=== PATIENT | male | born 1950 | race Caucasian/White ===

== ENCOUNTER 2023-12-20 11:37 | Emergency (ER) | payer MEDICARE, OTHER, SELFPAY ==
[2023-12-20 11:38] VITALS: BMI 25.9
[2023-12-20 11:43] VITALS: BP 105/70
--- NOTE | 2023-12-20 12:08 | ED.GENMED ---
History of Present Illness
General
Chief Complaint: Abdominal Symptoms
Time Seen by Provider: 12/20/23 12:00
Travel History
Have you had any contact with someone who has COVID-19?: No
Do you have any symptoms of coronavirus? Fever > 100 degrees, chills, cough, shortness of breath, sore throat, loss of taste or smell, muscle aches, or headache?: Yes
Symptoms:: see triage note
History of Present Illness
History of Present Illness:
HPI: 2 days ago the patient started having diarrhea. Currently the diarrhea has segmentally improved. He never had any vomiting. He had diffuse abdominal pain. He took tramadol earlier and now the symptoms have improved he has a history of
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 He also has history of diverticulitis with history of partial colectomy.
EXAM:
GENERAL: Well appearing in no distress
HEENT: Moist oral mucosa
CARDIOVASCULAR: No murmurs, normal heart rate and rhythm, No chest wall tenderness
PULMONARY: No respiratory distress, breath sounds are clear and equal
ABDOMEN: Soft with no peritoneal signs, mild diffuse abdominal tenderness, surgical scar noted to the left lower quadrant
NEUROLOGIC: Excellent strength all extremities, no coordination deficits, essential tremor noted
PSYCHIATRIC: Appropriate mental status, normal insight and judgement
EXTREMITIES: Nontender, no edema, moves all extremities equally
SKIN: No rash, no lesions
ED COURSE:
12:15 PM: I initially evaluated patient
NUMBER AND COMPLEXITY OF PROBLEMS ADDRESSED AT THE ENCOUNTER
� Chronic conditions affecting care: Neuroendocrine tumor, with mets to the liver and spine, essential tremor, A-fib on Xarelto, high blood pressure, history of diverticulitis
� Acute Exacerbation and/or Progression of Chronic Illness: This is an acute problem
� Differential Diagnosis includes: Progression of metastatic disease, diverticulitis, bowel obstruction, viral syndrome, gastroenteritis
AMOUNT AND/OR COMPLEXITY OF DATA TO BE REVIEWED AND ANALYZED
� I performed an independent evaluation of and my interpretation is:
EKG:
CT: CT imaging suggest enteritis but no sign of infection
X-rays:
Laboratory Studies: Mild pancytopenia noted, anemia is chronic and he has been thrombocytopenic in the past, renal function is normal
Other:
� Review of other/old records: The patient was seen here in the summer 2021 with hypovolemic shock associated with partial small bowel obstruction
� Clinical information was obtained by an independent historian: I spoke to the at bedside
� Prescriptions/Medications Considered but not given:
� Further testing considered but not performed:
RISK OF COMPLICATIONS AND/OR MORBIDITY OR MORTALITY OF PATIENT MANAGEMENT
� Social determinants of health affecting care: Lives at home
� Discussion with other providers:
� Escalation of care including admission/observation vs risk of discharge considered: Patient had diarrhea that started 2 days ago but resolved and now has some abdominal pain that is diffuse. Given history of diverticulitis
will obtain CT imaging. He appears fairly comfortable but did take tramadol earlier. On reassessment at around 2 PM, the symptoms somewhat worsened and was given a one-time dose of Toradol (patient is on anticoagulant). The pain persists however
he appears fairly comfortable on reassessment. I offered and considered keeping the patient for further observation however the patient does feel reasonly well to go home. CT suggest enteritis and he did have diarrhea.
Past History
Past History
ED Past Medical History: Arrthythmia, Cancer (Lung), GERD and HTN
ED Past Surgical History: Bowel resection and Orthopedic
Patient has exhibited threatening behavior?: No
Social History
Tobacco: Non-smoker
Alcohol: Daily
Drug: None
Personal:
Living: with family
Family History
Family History: Negative Early CAD
Phy Exam
Physical Exam
Physical Exam:
See HPI
Course
Orders/Labs/Results
Orders:
Orders
12/20/23 12:03
IV Insert/Care/Rem.- Treatment PRN
12/20/23 12:10
Complete Blood Count/With Diff Urgent
Comprehensive Metabolic Panel Urgent
Lipase Urgent
12/20/23 12:16
CT Abd/pelvis W Iv Cont Urgent
Comment:
Reason For Exam: abd pain, diarrhea, h/o NEC met to liver spine
0.9% Sodium Chloride 1000 ml [Nss] 1,000 ml IV BOLUS
12/20/23 13:47
Urinalysis Reflex To Culture Urgent
Date Specimen was Collected: 12/20/23
Time Specimen was Collected: 12:03
Urine Microscopic Reflex Cult Urgent
12/20/23 14:04
Ketorolac [Toradol] 15 mg IV NOW STA
Abnormal Lab Results
12/20/23 12/20/23
12:10 13:47
WBC 3.7 L 10^3/uL
(4.8-10.8)
RBC 3.67 L 10^6/uL
(4.70-6.10)
Hgb 10.6 L g/dL
(13.0-18.0)
Hct 32.5 L %
(39.0-52.0)
MCHC 32.6 L g/dL
(33.0-37.0)
Plt Count 114 L 10^3/uL
(130-400)
MPV 11.4 H fL
(7.4-10.4)
Absolute Lymphs (auto) 0.4 L 10^3/uL
(1.2-3.4)
Lymphocytes % 10.5 L %
(20.5-51.1)
Monocytes % 12.1 H %
(1.7-9.3)
Sodium 134 L mmol/L
(135-145)
Leukocyte Esterase Rfl Trace A
(Negative)
Urine Bacteria (Reflex) Few A
(Negative)
12/20/23 12:10
12/20/23 12:10
Vital Signs
Initial and Last Documented VS:
Initial Vital Signs
Temp Pulse Resp BP Pulse Ox
97.5 F 83 18 105/70 97
12/20/23 11:43 12/20/23 11:43 12/20/23 11:43 12/20/23 11:43 12/20/23 11:43
Last Documented Vital Signs
Temp Pulse Resp BP Pulse Ox
97.5 F 83 18 112/93 100
12/20/23 11:43 12/20/23 11:43 12/20/23 11:43 12/20/23 12:12 12/20/23 12:45
*Critical Care Note
Total Time (30-74mins, 75-104mins- exclusive of procedures): Not Applicable
ED Attending Note
-
Portions of this chart may have been created with voice recognition software.� Occasional wrong word or��sound alike� substitutions may have occurred due to the inherent limitations of voice recognition software.
Discharge Plan
Departure
Patient Disposition: Home (Routine Discharge)
Date of Disposition: 12/20/23
Time of Disposition: 15:10
Patient with high blood pressure during this ER visit?: Yes
Discharge Problem:
Enteritis
Prescriptions:
No Action
finasteride 5 MG tablet
5 mg PO DAILY
diphenoxylate-atropine [Lomotil] 2.5-0.025 mg Tablet
2 tab PO BID
Patient Comments:
05/15/2022: last filled 05/08/22, 240 tabs for 30 days from [facility]
cyanocobalamin (vitamin B-12) 1,000 mcg Tablet
1,000 mcg PO DAILY
tadalafil 20 mg Tablet
20 mg PO DAILY PRN (Reason: ED)
Creon 24,000-76,000 -120,000 unit Capsule,Delayed Release(Dr/Ec)
4 cap PO AC
Patient Comments:
4 capsules with meals TID
docusate sodium 100 mg Capsule
100 mg PO BID Qty: 0 0RF
lorazepam 1 mg Tablet
0.5 mg PO TID Qty: 9 0RF
venlafaxine 75 mg Capsule,Extended Release 24hr
75 mg PO DAILY Qty: 0 0RF
polyethylene glycol 3350 17 gram Powder In Packet
17 g PO DAILY Qty: 0 0RF
tamsulosin 0.4 mg Capsule
0.8 mg PO DAILY Qty: 0 0RF
folic acid 1 mg Tablet
1 mg PO DAILY Qty: 0 0RF
metoprolol tartrate 25 mg Tablet
12.5 mg PO BID Qty: 0 0RF
primidone 50 mg Tablet
50 mg PO DAILY Qty: 0 0RF
gabapentin 400 mg Capsule
400 mg PO BID Qty: 0 0RF
thiamine HCl (vitamin B1) 100 mg Tablet
200 mg PO DAILY Qty: 0 0RF
topiramate 25 mg Tablet
25 mg PO HS Qty: 0 0RF
pantoprazole 40 mg Tablet,Delayed Release (Dr/Ec)
40 mg PO DAILY Qty: 0 0RF
cefdinir 300 mg Capsule
300 mg PO Q12 Qty: 0 0RF
finasteride 5 mg Tablet
5 mg PO DAILY Qty: 0 0RF
Xarelto 20 mg Tablet
20 mg PO QPM Qty: 0 0RF
olanzapine 5 mg Tablet,Disintegrating
2.5 mg PO HS Qty: 1 0RF
Referrals:
Lele Farnsworth MD [Family Provider] -
Activity Restrictions/Additional Instructions:
The CAT scan of the abdomen and pelvis suggests enteritis there is no sign of bowel obstruction. Metastatic lesions again are seen. There was no sign of infection. Kidney function is normal. Pancreas test is normal. Return here if worse.
Continue tramadol as needed
Interventions
Interventions:
*General Assessment Last Done: 12/20/23 11:43
ED- Fall Risk Assessment Last Done: 12/20/23 12:31
*ED COVID-19 Vaccine History Last Done: 12/20/23 11:43
KN-Agymxv-Gukzdqfwie Assessment Last Done: 12/20/23 12:31
[2023-12-20 12:12] VITALS: BP 112/93
[2023-12-20 12:17] LABS: % Basophils 0.5 % (0-2); % Eosinophils 4.6 % (0-6); % Immature Granulocytes 0.5 % (0-0.5); % Lymphocytes 10.5 % (20.5-51.1); % Monocytes 12.1 % (1.7-9.3); % Neutrophils 71.8 % (42.2-75.2); Absolute Eosinophils 0.2 10^3/uL (0-0.7); Absolute Lymphocytes 0.4 10^3/uL (1.2-3.4); Absolute Monocytes 0.5 10^3/uL (0.1-0.6); Absolute Neutrophils 2.7 10^3/uL (1.4-6.5); Hematocrit 32.5 % (39.0-52.0); Hemoglobin 10.6 g/dL (13.0-18.0); Mean Corp Hgb Conc. 32.6 g/dL (33.0-37.0); Mean Corpuscular Hgb 28.9 pg (27.0-31.0); Mean Corpuscular Volume 88.6 fL (80.0-94.0); Mean Platelet Volume 11.4 fL (7.4-10.4); Nucleated Red Blood Cells % 0 % (-); Platelet Count 114 10^3/uL (130-400); Red Blood Cell Count 3.67 10^6/uL (4.70-6.10); Red Cell Dist. Width 14.3 % (11.5-14.5); White Blood Cell Count 3.7 10^3/uL (4.8-10.8)
[2023-12-20] MEDS: NSS 1000 IV (12:30)
[2023-12-20 12:32] LABS: ALT (SGPT) 12 U/L (0-50); AST (SGOT) 19 U/L (17-59); Albumin 3.8 g/dl (3.5-5.0); Alkaline Phosphatase 66 U/L (38-126); Blood Urea Nitrogen 17 mg/dl (9-20); Carbon Dioxide 26 mmol/L (22-30); Chloride 104 mmol/L (98-107); Estimated Creatinine Clearance 69 ml/min; Glucose 96 mg/dl (70-99); Lipase 57 U/L (23-300); Potassium 3.6 mmol/L (3.5-5.1); Sodium 134 mmol/L (135-145); Total Bilirubin 0.7 mg/dl (0.2-1.3); Total Protein 6.4 g/dl (6.3-8.2); eGFR > 60.00
[2023-12-20] MEDS: TORADOL 15 MG IV (14:08)
[2023-12-20 14:22] LABS: Urine Albumin Negative (Neg - Trace); Urine Bilirubin Negative (Negative); Urine Character Clear (Clear); Urine Color Yellow; Urine Glucose Negative (Negative); Urine Ketone Negative (Negative); Urine Leukocyte Trace (Negative); Urine Nitrite Negative (Negative); Urine Occult Blood Negative (Negative); Urine Urobilinogen Negative (Neg - 1+)
[2023-12-20 14:40] LABS: Urine Bacteria Few (Negative); Urine Red Blood Cell 0-2 /HPF (0-2); Urine White Cell 0-2 /HPF (0-5)
== END 2023-12-20 15:47 | disposition home or self-care (01) ==
LOC: EMR 11:37
PROVIDERS: EMERGENCY PHYSICIAN Emergency Medicine; FAMILY PHYSICIAN Internal Medicine
DX: K52.9 Noninfective gastroenteritis and colitis, unspecified (principal); I48.91 Unspecified atrial fibrillation; C7A.8 Other malignant neuroendocrine tumors; I10 Essential (primary) hypertension; K21.9 Gastro-esophageal reflux disease without esophagitis; Z79.01 Long term (current) use of anticoagulants; Z90.49 Acquired absence of other specified parts of digestive tract
CPT/HCPCS: 99283; 96374; 96361; 74177; 80053; 81003; 81015; 83690; 85025; Q9967

== ENCOUNTER 2024-04-07 11:08 | Emergency (ER) | payer MEDICARE, OTHER, SELFPAY ==
[2024-04-07] VITALS (22 sets, daily range): BP systolic 95–127; BP diastolic 52–108; BMI 25.7
[2024-04-07] MEDS: CARDIZEM 125 IV (11:32)
[2024-04-07] MEDS: NSS 1000 IV (11:33)
--- NOTE | 2024-04-07 11:34 | ED.GENMED ---
History of Present Illness
<Dustin Russ PA-C - Last Filed: 04/07/24 14:58>
General
Chief Complaint: Fatigue
Time Seen by Provider: 04/07/24 11:18
Travel History
Have you had any contact with someone who has COVID-19?: No
Do you have any symptoms of coronavirus? Fever > 100 degrees, chills, cough, shortness of breath, sore throat, loss of taste or smell, muscle aches, or headache?: No
History of Present Illness
History of Present Illness:
73-year-old male with history of stage IV metastatic lung cancer, atrial fibrillation on Eliquis, and hypertension presents to the emergency department for evaluation of generalized fatigue ongoing for the past 2 to 3 days. He states that he feels
as though he could fall asleep at any moment. Does have some exertional shortness of breath but denies chest pain or palpitations. He was noted to be in rapid atrial fibrillation prehospital for EMS. He is approximately 6-month status post
ablation performed at the [facility] and has been compliant with his Eliquis since then. He is currently on flecainide as an antiarrhythmic. He does not manage daily alcohol intake, estimates roughly 5-6 beers nightly but has not
consumed alcohol in 2 days. Denies any recent nausea or vomiting but does have diarrhea for the past 3 to 4 days.
Past History
<Dustin Russ PA-C - Last Filed: 04/07/24 14:58>
Past History
ED Past Medical History: Arrthythmia, Cancer (Lung), GERD and HTN
ED Past Surgical History: Bowel resection and Orthopedic
Patient has exhibited threatening behavior?: No
Social History
Tobacco: Non-smoker
Alcohol: Daily
Drug: None
Personal:
Living: with family
Family History
Family History: Negative Early CAD
Review of Systems
<Dustin Russ PA-C - Last Filed: 04/07/24 14:58>
Review of Systems
Allergies reviewed?: Yes
All Other Systems: ROS reviewed and negative except as documented in HPI and ROS
Phy Exam
<Dustin Russ PA-C - Last Filed: 04/07/24 14:58>
Physical Exam
Physical Exam:
GEN: Well appearing, NAD, WDWN
Eyes: PERRLA, EOMs intact, no scleral icterus
HENT: NCAT, oral mucosa moist, no JVD, no cervical adenopathy.
Lungs: CTAB, no wheezes, rales, rhonchi, normal chest wall excursion
Cardiac: Tachycardic, regular, no murmur
Abdomen: S, NT, ND, NABS, no masses or hepatosplenomegaly
Neuro: AO x 3
MSK: No gross deformity or ecchymosis. No edema. No digital clubbing
Skin: No rashes, petechiae. Normal color, no pallor or jaundice.
Psych: Calm, cooperative, proper hygiene
Course
<Dustin Russ PA-C - Last Filed: 04/07/24 14:58>
Orders/Labs/Results
Orders:
Orders
04/07/24 11:11
EKG [Electrocardiogram (*1)] Urgent
Reason for Study: Atrial Fibrillation
EKG- Treatment ONCE
04/07/24 11:24
0.9% Sodium Chloride 1000 ml [Nss] 1,000 ml IV BOLUS
Magnesium Sulfate 2 Gram/50 ml [Magnesium Sulfate] 2 gram in 50 ml IV NOW
04/07/24 11:29
CBC/With Diff [Complete Blood Count/With Diff] Urgent
CMP [Comprehensive Metabolic Panel] Urgent
Magnesium Urgent
04/07/24 11:30
Diltiazem 125 mg/125 ml Nss [Cardizem] 125 mg in 125 ml IV PER PROTOCOL
Initial dose in mg/hr, then titrate:: 5
Titrate to keep:: Heart rate 80-100 bpm
Titrate by mg/hr:: 5 mg/hr
Frequency of titrations (minutes):: 15
Maximum dose in mg/hr:: 15
04/07/24 11:58
Potassium Chloride [KCl] 40 meq PO NOW STA
04/07/24 12:46
EKG [Electrocardiogram (*1)] Urgent
Reason for Study: Atrial Fibrillation
EKG- Treatment ONCE
04/07/24 13:09
Propofol [Diprivan] 20 ml .ROUTE .STK-MED
Abnormal Lab Results
04/07/24
11:29
RBC 4.15 L 10^6/uL
(4.70-6.10)
Hgb 11.6 L g/dL
(13.0-18.0)
Hct 35.3 L %
(39.0-52.0)
MCHC 32.9 L g/dL
(33.0-37.0)
MPV 12.2 H fL
(7.4-10.4)
Absolute Lymphs (auto) 0.5 L 10^3/uL
(1.2-3.4)
Neutrophils % 78.8 H %
(42.2-75.2)
Lymphocytes % 8.6 L %
(20.5-51.1)
Monocytes % 10.2 H %
(1.7-9.3)
Potassium 3.4 L mmol/L
(3.5-5.1)
BUN 21 H mg/dl
(9-20)
Glucose 115 H mg/dl
(70-99)
Total Protein 6.1 L g/dl
(6.3-8.2)
04/07/24 11:29
04/07/24 11:29
Vital Signs
Initial and Last Documented VS:
Initial Vital Signs
Temp Pulse Resp BP Pulse Ox
98.4 F 135 19 98/52 99
04/07/24 11:11 04/07/24 11:11 04/07/24 11:11 04/07/24 11:11 04/07/24 11:11
Last Documented Vital Signs
Temp Pulse Resp BP Pulse Ox
98 F 84 20 101/70 99
04/07/24 13:53 04/07/24 14:25 04/07/24 14:25 04/07/24 14:25 04/07/24 14:25
Dixonlt;Cam Jacobs DO - Last Filed: 04/07/24 14:05>
Orders/Labs/Results
Orders:
Orders
04/07/24 11:11
EKG [Electrocardiogram (*1)] Urgent
Reason for Study: Atrial Fibrillation
EKG- Treatment ONCE
04/07/24 11:24
0.9% Sodium Chloride 1000 ml [Nss] 1,000 ml IV BOLUS
Magnesium Sulfate 2 Gram/50 ml [Magnesium Sulfate] 2 gram in 50 ml IV NOW
04/07/24 11:29
CBC/With Diff [Complete Blood Count/With Diff] Urgent
CMP [Comprehensive Metabolic Panel] Urgent
Magnesium Urgent
04/07/24 11:30
Diltiazem 125 mg/125 ml Nss [Cardizem] 125 mg in 125 ml IV PER PROTOCOL
Initial dose in mg/hr, then titrate:: 5
Titrate to keep:: Heart rate 80-100 bpm
Titrate by mg/hr:: 5 mg/hr
Frequency of titrations (minutes):: 15
Maximum dose in mg/hr:: 15
04/07/24 11:58
Potassium Chloride [KCl] 40 meq PO NOW STA
04/07/24 12:46
EKG [Electrocardiogram (*1)] Urgent
Reason for Study: Atrial Fibrillation
EKG- Treatment ONCE
04/07/24 13:09
Propofol [Diprivan] 20 ml .ROUTE .STK-MED
Abnormal Lab Results
04/07/24
11:29
RBC 4.15 L 10^6/uL
(4.70-6.10)
Hgb 11.6 L g/dL
(13.0-18.0)
Hct 35.3 L %
(39.0-52.0)
MCHC 32.9 L g/dL
(33.0-37.0)
MPV 12.2 H fL
(7.4-10.4)
Absolute Lymphs (auto) 0.5 L 10^3/uL
(1.2-3.4)
Neutrophils % 78.8 H %
(42.2-75.2)
Lymphocytes % 8.6 L %
(20.5-51.1)
Monocytes % 10.2 H %
(1.7-9.3)
Potassium 3.4 L mmol/L
(3.5-5.1)
BUN 21 H mg/dl
(9-20)
Glucose 115 H mg/dl
(70-99)
Total Protein 6.1 L g/dl
(6.3-8.2)
04/07/24 11:29
04/07/24 11:29
Vital Signs
Initial and Last Documented VS:
Initial Vital Signs
Temp Pulse Resp BP Pulse Ox
98.4 F 135 19 98/52 99
04/07/24 11:11 04/07/24 11:11 04/07/24 11:11 04/07/24 11:11 04/07/24 11:11
Last Documented Vital Signs
Temp Pulse Resp BP Pulse Ox
98 F 84 20 101/70 99
04/07/24 13:53 04/07/24 14:25 04/07/24 14:25 04/07/24 14:25 04/07/24 14:25
Procedures
<Dustin Russ PA-C - Last Filed: 04/07/24 14:58>
Cardioversion
Indication:: Afib
Performed by:: Dustin Russ PA-C, Haim Jacobs,
Synchronized?: Yes
Energy Used: 200 joules
Number of attempts: 1
Successful?: Yes
Complications: None
ASA Risk Score: Class III
Any reaction or bad outcome to prior sedation/anesthesia?: No history of a reaction
Sedation level to be attained: moderate
Chart and allergies reviewed: Yes
Patient reassessed prior to sedation: Yes
Time out completed at (validating right patient & procedure): 13:22
History of difficult intubation: No
Airway free of obstruction: Yes
Patient has a gag reflex: Yes
Patient is able to open mouth: Yes
Patient has no dentures: Yes
Patient has no loose teeth: Yes
Medication administered by Provider during Moderate Sedation: IV Propofol (mg)
Total dose administered: 100
Time drug administered: 13:26
Start Time: 13:26
Stop Time: 13:36
<Dustin Russ PA-C - Last Filed: 04/07/24 14:58>
MDM/Problems Addressed
MDM/Problems Addressed:
73-year-old male presents with acute fatigue and is found to be in rapid atrial fibrillation. He is noted to be mildly dry on exam with mild hypokalemia and electrolytes were repleted by IV and oral route as well as IV fluid rehydration. He was
placed on a diltiazem drip for some time however did not convert to normal sinus rhythm. Given that he is anticoagulated the decision was made to proceed with electrical cardioversion and the patient consented for this. He was cardioverted x 1
successfully with no complications. Remained in normal sinus rhythm and noted significant improvement in his arrival symptoms. Encouraged him to follow-up with his outpatient curator of collections through the [facility] to discuss
medication changes if warranted
<Dustin Russ PA-C - Last Filed: 04/07/24 14:58>
Comment
Comment:
Initial EKG independently interpreted by me shows a rapid atrial fibrillation/atrial flutter
*Critical Care Note
Total Time (30-74mins, 75-104mins- exclusive of procedures): Not Applicable
ED Attending Note
<Dustin Russ PA-C - Last Filed: 04/07/24 14:58>
-
Portions of this chart may have been created with voice recognition software.� Occasional wrong word or��sound alike� substitutions may have occurred due to the inherent limitations of voice recognition software.
<Cam Jacobs DO - Last Filed: 04/07/24 14:05>
ED Attending Note
Patient seen and examined by attending physician: Yes
I performed the substantive portion of visit, reviewed & personally made and approve the management plan that is documented in note by myself or JONA.: Yes
ED Attending Note:
73-year-old male presents with feeling of fatigue. Noted to be in A-fib with rapid ventricular response upon arrival. Patient did have an ablation at [place]. He is compliant with his anticoagulation.
General: Awake, Alert, Oriented X3. No acute distress.
Vitals: unremarkable
Head: Atraumatic
Eyes: Pupils equal, EOMI
Throat: Airway intact, no exudates. Airway is a Mallampati 2-3
Neck: Trachea midline
Lungs: Clear and equal b/l
Heart: Tachycardic, irregular rate, no murmurs
Neuro: No focal deficits, resting tremor
Skin: Warm, dry, no rash
Extremities: pulses equal b/l, trace edema
Cardioversion performed. Patient tolerated cardioversion well. He converted with 1 shock of 200 J.
Discharge Plan
Departure
Patient Disposition: Home (Routine Discharge)
Date of Disposition: 04/07/24
Time of Disposition: 14:18
Patient with high blood pressure during this ER visit?: No
Discharge Problem:
Atrial fibrillation with RVR
Instructions: Cardioversion (DC), Moderate Sedation in Adults (DC)
Prescriptions:
No Action
finasteride 5 MG tablet
5 mg PO DAILY
diphenoxylate-atropine [Lomotil] 2.5-0.025 mg Tablet
2 tab PO BID
Patient Comments:
05/15/2022: last filled 05/08/22, 240 tabs for 30 days from [facility]
cyanocobalamin (vitamin B-12) 1,000 mcg Tablet
1,000 mcg PO DAILY
tadalafil 20 mg Tablet
20 mg PO DAILY PRN (Reason: ED)
Creon 24,000-76,000 -120,000 unit Capsule,Delayed Release(Dr/Ec)
4 cap PO AC
Patient Comments:
4 capsules with meals TID
docusate sodium 100 mg Capsule
100 mg PO BID Qty: 0 0RF
lorazepam 1 mg Tablet
0.5 mg PO TID Qty: 9 0RF
venlafaxine 75 mg Capsule,Extended Release 24hr
75 mg PO DAILY Qty: 0 0RF
polyethylene glycol 3350 17 gram Powder In Packet
17 g PO DAILY Qty: 0 0RF
tamsulosin 0.4 mg Capsule
0.8 mg PO DAILY Qty: 0 0RF
folic acid 1 mg Tablet
1 mg PO DAILY Qty: 0 0RF
metoprolol tartrate 25 mg Tablet
12.5 mg PO BID Qty: 0 0RF
primidone 50 mg Tablet
50 mg PO DAILY Qty: 0 0RF
gabapentin 400 mg Capsule
400 mg PO BID Qty: 0 0RF
thiamine HCl (vitamin B1) 100 mg Tablet
200 mg PO DAILY Qty: 0 0RF
topiramate 25 mg Tablet
25 mg PO HS Qty: 0 0RF
pantoprazole 40 mg Tablet,Delayed Release (Dr/Ec)
40 mg PO DAILY Qty: 0 0RF
cefdinir 300 mg Capsule
300 mg PO Q12 Qty: 0 0RF
finasteride 5 mg Tablet
5 mg PO DAILY Qty: 0 0RF
Xarelto 20 mg Tablet
20 mg PO QPM Qty: 0 0RF
olanzapine 5 mg Tablet,Disintegrating
2.5 mg PO HS Qty: 1 0RF
Referrals:
Lele Farnsworth MD [Family Provider] -
Activity Restrictions/Additional Instructions:
Follow up with your curator of collections regarding any possible medication changes
Interventions
Interventions:
*Risk Screen - Suicide Last Done: 04/07/24 11:11
*General Assessment Last Done: 04/07/24 11:11
*Neglect/Abuse Screening Last Done: 04/07/24 11:11
ED- Fall Risk Assessment Last Done: 04/07/24 11:11
*Nursing Disposition Last Done: 04/07/24 14:42
Discharge Date and Time
Discharge Date/Time: 04/07/24 14:48
Print Language: COMORAN
[2024-04-07] MEDS: MAGNESIUM SULFATE 50 IV (11:37)
[2024-04-07 11:42] LABS: % Basophils 0.3 % (0-2); % Eosinophils 1.8 % (0-6); % Immature Granulocytes 0.3 % (0-0.5); % Lymphocytes 8.6 % (20.5-51.1); % Monocytes 10.2 % (1.7-9.3); % Neutrophils 78.8 % (42.2-75.2); Absolute Eosinophils 0.1 10^3/uL (0-0.7); Absolute Lymphocytes 0.5 10^3/uL (1.2-3.4); Absolute Monocytes 0.6 10^3/uL (0.1-0.6); Absolute Neutrophils 4.8 10^3/uL (1.4-6.5); Hematocrit 35.3 % (39.0-52.0); Hemoglobin 11.6 g/dL (13.0-18.0); Mean Corp Hgb Conc. 32.9 g/dL (33.0-37.0); Mean Corpuscular Volume 85.1 fL (80.0-94.0); Mean Platelet Volume 12.2 fL (7.4-10.4); Nucleated Red Blood Cells % 0 % (-); Platelet Count 131 10^3/uL (130-400); Red Blood Cell Count 4.15 10^6/uL (4.70-6.10); Red Cell Dist. Width 14.2 % (11.5-14.5); White Blood Cell Count 6.1 10^3/uL (4.8-10.8)
[2024-04-07 11:56] LABS: ALT (SGPT) 15 U/L (0-50); AST (SGOT) 18 U/L (17-59); Albumin 3.7 g/dl (3.5-5.0); Alkaline Phosphatase 68 U/L (38-126); Blood Urea Nitrogen 21 mg/dl (9-20); Calcium 10.2 mg/dl (8.4-10.2); Carbon Dioxide 24 mmol/L (22-30); Chloride 104 mmol/L (98-107); Estimated Creatinine Clearance 57 ml/min; Glucose 115 mg/dl (70-99); Magnesium 2.1 mg/dl (1.6-2.3); Potassium 3.4 mmol/L (3.5-5.1); Sodium 138 mmol/L (135-145); Total Protein 6.1 g/dl (6.3-8.2); eGFR 57.29
[2024-04-07] MEDS: KCL 40 MEQ PO (12:21)
== END 2024-04-07 14:48 | disposition home or self-care (01) ==
LOC: EMR 11:08
PROVIDERS: EMERGENCY PHYSICIAN Emergency Medicine; FAMILY PHYSICIAN Internal Medicine
DX: I48.91 Unspecified atrial fibrillation (principal); E87.6 Hypokalemia; I10 Essential (primary) hypertension; K21.9 Gastro-esophageal reflux disease without esophagitis; Z79.01 Long term (current) use of anticoagulants
CPT/HCPCS: 99283; 92960; 80053; 83735; 85025; 93005

== ENCOUNTER 2024-05-02 06:40 | Emergency (ER) | payer MEDICARE, OTHER, SELFPAY ==
[2024-05-02 06:44] VITALS: BP 111/74; BMI 27.4
--- NOTE | 2024-05-02 07:54 | ED.GENMED ---
History of Present Illness
General
Chief Complaint: Fall
Exam Limitations: none
Time Seen by Provider: 05/02/24 07:32
Nursing documentation reviewed up to this point in time: agreed with
History of Present Illness
History of Present Illness:
Patient is a 73-year-old male on Xarelto who presents to the ER for evaluation of head injury. Patient reports he fell asleep in the bathroom on the toilet he woke up to stand up and lost his footing and hit his forehead in the tub. This occurred
around 2 am. He is on Xarelto. He denies any headache. He denies any neck pain. Denies any muscle pain. He reports he feels sore in his joints but no obvious complaints of bony injury. He complains of scrapes and bruising but denies any
extremity pain.
Past History
Past History
ED Past Medical History: Arrthythmia, Cancer (Lung), GERD and HTN
ED Past Surgical History: Bowel resection and Orthopedic
Patient has exhibited threatening behavior?: No
Social History
Tobacco: Non-smoker
Alcohol: Daily
Drug: None
Personal:
Living: with family
Family History
Family History: Negative Early CAD
Review of Systems
Review of Systems
Allergies reviewed?: Yes
All Other Systems: ROS reviewed and negative except as documented in HPI and ROS
Constitutional: Reports no symptoms
Respiratory: Reports no symptoms
Cardiac: Reports no symptoms
ABD/GI: Denies nausea or vomiting
Musculoskeletal: Denies neck pain
Skin: Reports no symptoms
Neurological: Denies headache
Psychiatric: Reports no symptoms
Phy Exam
General Physical Exam
General Presentation: no apparent distress
General age: appears stated age
General Skin: warm and dry
General Habitus: normal
General Mental: alert
General Hydration: appears well hydrated
Eye Exam
Eye Exam: PERRL and EOMI
Eye Exam General: PERRL: bilateral and EOM intact: bilateral
Pupil Exam: Bilateral: round and reactive
Musculoskeletal Exam
Musculoskeletal Exam: other (Right forehead with ecchymosis; scattered abrasions to forearms, no bony cervical thoracic or lumbar tenderness full range of motion to upper and lower extremities scattered ecchymosis to b/l legs )
Skin Exam
Skin Exam: normal color and warm/dry
Psychiatric Exam
Psychiatric Exam: normal mood/affect
Course
Orders/Labs/Results
Orders:
Orders
05/02/24 06:43
CT Head W/o Iv Contrast Urgent
Comment:
Reason For Exam: fall on xerlto
05/02/24 08:31
Vital Signs- Treatment ONCE
Frequency: Once
05/02/24 08:32
Tetanus/Diphth/Acelpertussis [Adacel] 0.5 ml IM .ONCE ONE
Vital Signs
Initial and Last Documented VS:
Initial Vital Signs
Temp Pulse Resp BP Pulse Ox
98.0 F 88 16 111/74 98
05/02/24 06:44 05/02/24 06:44 05/02/24 06:44 05/02/24 06:44 05/02/24 06:44
Last Documented Vital Signs
Temp Pulse Resp BP Pulse Ox
98.0 F 88 16 111/74 98
05/02/24 06:44 05/02/24 06:44 05/02/24 06:44 05/02/24 06:44 05/02/24 06:44
MDM/Problems Addressed
MDM/Problems Addressed:
Patient is a 73-year-old male who fell from the toilet and slipped while he woke up and fell in the bathtub he did hit his head on the tub. He is on anticoagulation but denies loss of conscious. He has no headache no nausea vomiting. He called
for his for couple hours but she was not able to hear him because he was on the other side of the house. He presents awake alert he has ecchymosis to his forehead with scattered abrasions and ecchymosis to his arms and legs. He is unsure his
last tetanus was updated. He has no complaints of muscle pain. He has full range of motion to all extremities full range of motion to hips no bony tenderness. CT head negative. Patient is has no cervical/ Thoracic or lumbar tenderness. He is
awake alert with a normal neurologic exam. He ambulated here and steady at baseline. Will plan for discharge home. Stable vital signs
*Radiology
Radiology exam reviewed: radiology read reviewed
*Pulse Oximetry
Patient hypoxic: no
*Critical Care Note
Total Time (30-74mins, 75-104mins- exclusive of procedures): Not Applicable
ED Attending Note
-
Portions of this chart may have been created with voice recognition software.� Occasional wrong word or��sound alike� substitutions may have occurred due to the inherent limitations of voice recognition software.
Discharge Plan
Departure
Patient Disposition: Home (Routine Discharge)
Date of Disposition: 05/02/24
Time of Disposition: 08:32
Patient with high blood pressure during this ER visit?: Yes
Condition: Fair
Covid-19: Not Applicable
Discharge Problem:
Head injury, Abrasion, Contusion
Instructions: Head injury in adults, Contusion (DC), Abrasions ED
Prescriptions:
No Action
finasteride 5 MG tablet
5 mg PO DAILY
diphenoxylate-atropine [Lomotil] 2.5-0.025 mg Tablet
2 tab PO BID
Patient Comments:
05/15/2022: last filled 05/08/22, 240 tabs for 30 days from [facility]
cyanocobalamin (vitamin B-12) 1,000 mcg Tablet
1,000 mcg PO DAILY
tadalafil 20 mg Tablet
20 mg PO DAILY PRN (Reason: ED)
Creon 24,000-76,000 -120,000 unit Capsule,Delayed Release(Dr/Ec)
4 cap PO AC
Patient Comments:
4 capsules with meals TID
docusate sodium 100 mg Capsule
100 mg PO BID Qty: 0 0RF
lorazepam 1 mg Tablet
0.5 mg PO TID Qty: 9 0RF
venlafaxine 75 mg Capsule,Extended Release 24hr
75 mg PO DAILY Qty: 0 0RF
polyethylene glycol 3350 17 gram Powder In Packet
17 g PO DAILY Qty: 0 0RF
tamsulosin 0.4 mg Capsule
0.8 mg PO DAILY Qty: 0 0RF
folic acid 1 mg Tablet
1 mg PO DAILY Qty: 0 0RF
metoprolol tartrate 25 mg Tablet
12.5 mg PO BID Qty: 0 0RF
primidone 50 mg Tablet
50 mg PO DAILY Qty: 0 0RF
gabapentin 400 mg Capsule
400 mg PO BID Qty: 0 0RF
thiamine HCl (vitamin B1) 100 mg Tablet
200 mg PO DAILY Qty: 0 0RF
topiramate 25 mg Tablet
25 mg PO HS Qty: 0 0RF
pantoprazole 40 mg Tablet,Delayed Release (Dr/Ec)
40 mg PO DAILY Qty: 0 0RF
cefdinir 300 mg Capsule
300 mg PO Q12 Qty: 0 0RF
finasteride 5 mg Tablet
5 mg PO DAILY Qty: 0 0RF
Xarelto 20 mg Tablet
20 mg PO QPM Qty: 0 0RF
olanzapine 5 mg Tablet,Disintegrating
2.5 mg PO HS Qty: 1 0RF
Referrals:
Lele Farnsworth MD [Family Provider] -
Activity Restrictions/Additional Instructions:
wash abrasions with soap or twice a day apply small layer of antibiotic ointment to the area. You may take Tylenol as needed for discomfort. Follow-up with your family doctor the next 1 days for reevaluation return if any worsening of symptoms
Interventions
Interventions:
*Risk Screen - Suicide Last Done: 05/02/24 06:44
*General Assessment Last Done: 05/02/24 06:44
*Neglect/Abuse Screening Last Done: 05/02/24 06:44
ED- Fall Risk Assessment Last Done: 05/02/24 06:44
*ED COVID-19 Vaccine History Last Done: 05/02/24 06:44
ED-Musculoskeletal Assessment Last Done: 05/02/24 06:44
ED- Neurological Assessment Last Done: 05/02/24 06:44
ED-Skin Assessment Last Done: 05/02/24 06:44
Discharge Date and Time
Print Language: GREENLANDIC
[2024-05-02] MEDS: ADACEL 0.5 ML IM (08:40)
[2024-05-02 08:46] VITALS: BP 122/78
== END 2024-05-02 09:06 | disposition home or self-care (01) ==
LOC: EMR 06:40
PROVIDERS: EMERGENCY PHYSICIAN Student in an Organized Health Care Education/Training Program; FAMILY PHYSICIAN Internal Medicine
DX: S09.90XA Unspecified injury of head, initial encounter (principal); S00.81XA Abrasion of other part of head, initial encounter; S00.03XA Contusion of scalp, initial encounter; W19.XXXA Unspecified fall, initial encounter; Z23 Encounter for immunization; Z79.01 Long term (current) use of anticoagulants; K21.9 Gastro-esophageal reflux disease without esophagitis; I10 Essential (primary) hypertension
CPT/HCPCS: 99284; 90471; 70450; 90715

== ENCOUNTER 2024-07-04 13:34 | Emergency (ER) | payer MEDICARE, OTHER, SELFPAY ==
[2024-07-04 13:35] VITALS: BP 158/53
--- NOTE | 2024-07-04 14:04 | ED.GENMED ---
History of Present Illness
General
Chief Complaint: Heart Rate Problem
Time Seen by Provider: 07/04/24 13:59
History of Present Illness
History of Present Illness:
HPI: The patient presents due to concerns of atrial fibrillation/flutter as he had a blood pressure cuff that read his heart rate in the 170s today. He was told by his lsw that if his heart rate goes over 110 he should come to the
hospital. He has a general weak feeling. He is on Xarelto but does not tolerate it due to easy bleeding at the skin. There is plan for pacemaker related to atrial fibrillation recurrence and Watchman procedure future.
EXAM:
GENERAL: Well appearing in no distress, on the monitor he is in a sinus rhythm
HEENT: Moist oral mucosa
CARDIOVASCULAR: No murmurs, normal heart rate, regular rhythm, No chest wall tenderness
PULMONARY: No respiratory distress, breath sounds are clear and equal
ABDOMEN: Soft with no peritoneal signs, no tenderness
NEUROLOGIC: Central tremor noted excellent strength all extremities, no coordination deficits
PSYCHIATRIC: Appropriate mental status, normal insight and judgement
EXTREMITIES: Nontender, no edema, moves all extremities equally
SKIN: Upper ecchymosis noted
TIME OF INITIAL ENCOUNTER: 2 PM
NUMBER AND COMPLEXITY OF PROBLEMS ADDRESSED AT THE ENCOUNTER
� Chronic conditions affecting care: Atrial fibrillation, stage IV lung cancer, anxiety/depression
� Acute Exacerbation and/or Progression of Chronic Illness: This is an acute on chronic problem
� Differential Diagnosis includes: Atrial flutter, atrial fibrillation, anemia, other dysrhythmia
AMOUNT AND/OR COMPLEXITY OF DATA TO BE REVIEWED AND ANALYZED
� I performed an independent evaluation of and my interpretation is:
EKG: Sinus 91, first-degree AV block, right bundle branch block, this is similar in appearance to April 07, 2024
CT:
X-rays:
Laboratory Studies: White count of 3.7, hemoglobin 10.4, however this is near baseline, chemistries are unremarkable including magnesium and potassium
Other:
� Review of other/old records: I reviewed records. The patient was here April 07, 2024 with A-fib with RVR and at that time had electrical cardioversion
� Clinical information was obtained by an independent historian: I spoke to the at bedside
� Prescriptions/Medications Considered but not given:
� Further testing considered but not performed:
RISK OF COMPLICATIONS AND/OR MORBIDITY OR MORTALITY OF PATIENT MANAGEMENT
� Social determinants of health affecting care: The patient lives at home
� Discussion with other providers:
� Escalation of care including admission/observation vs risk of discharge considered: The patient is currently in a sinus rhythm. No indication for cardioversion. His rate is controlled in the 80s. Since he does have some
weakness will obtain labs as he is on Xarelto. While in the ED, the patient remains in a sinus rhythm. On reassessment at 3:20 PM he is still in sinus and his labs are relatively unremarkable. Overall, the patient feels improved.
Past History
Past History
ED Past Medical History: Arrthythmia, Cancer (Lung), GERD and HTN
ED Past Surgical History: Bowel resection and Orthopedic
Patient has exhibited threatening behavior?: No
Social History
Tobacco: Non-smoker
Alcohol: Daily
Drug: None
Personal:
Living: with family
Family History
Family History: Negative Early CAD
Phy Exam
Physical Exam
Physical Exam:
See HPI
Course
Orders/Labs/Results
Orders:
Orders
07/04/24 13:38
EKG [Electrocardiogram (*1)] Urgent
Reason for Study: Atrial Fibrillation
07/04/24 13:39
EKG- Treatment ONCE
07/04/24 14:14
Basic Metabolic Panel Urgent
Complete Blood Count/With Diff Urgent
Magnesium Urgent
Abnormal Lab Results
07/04/24
14:14
WBC 3.7 L 10^3/uL
(4.8-10.8)
RBC 3.76 L 10^6/uL
(4.70-6.10)
Hgb 10.4 L g/dL
(13.0-18.0)
Hct 32.3 L %
(39.0-52.0)
MCHC 32.2 L g/dL
(33.0-37.0)
RDW 14.6 H %
(11.5-14.5)
MPV 12.4 H fL
(7.4-10.4)
Absolute Lymphs (auto) 0.4 L 10^3/uL
(1.2-3.4)
Neutrophils % 76.6 H %
(42.2-75.2)
Lymphocytes % 10.9 L %
(20.5-51.1)
Glucose 100 H mg/dl
(70-99)
07/04/24 14:14
07/04/24 14:14
Vital Signs
Initial and Last Documented VS:
Initial Vital Signs
Temp Pulse Resp BP Pulse Ox
98.3 F 101 18 158/53 99
07/04/24 13:35 07/04/24 13:35 07/04/24 13:35 07/04/24 13:35 07/04/24 13:35
Last Documented Vital Signs
Temp Pulse Resp BP Pulse Ox
98.3 F 83 16 130/71 95
07/04/24 13:35 07/04/24 15:15 07/04/24 15:15 07/04/24 15:00 07/04/24 15:15
*Critical Care Note
Total Time (30-74mins, 75-104mins- exclusive of procedures): Not Applicable
ED Attending Note
-
Portions of this chart may have been created with voice recognition software.� Occasional wrong word or��sound alike� substitutions may have occurred due to the inherent limitations of voice recognition software.
Discharge Plan
Departure
Patient Disposition: Home (Routine Discharge)
Date of Disposition: 07/04/24
Time of Disposition: 15:24
Patient with high blood pressure during this ER visit?: Yes
Discharge Problem:
Weakness
Prescriptions:
No Action
finasteride 5 MG tablet
5 mg PO DAILY
diphenoxylate-atropine [Lomotil] 2.5-0.025 mg Tablet
2 tab PO BID
Patient Comments:
05/15/2022: last filled 05/08/22, 240 tabs for 30 days from [facility]
cyanocobalamin (vitamin B-12) 1,000 mcg Tablet
1,000 mcg PO DAILY
tadalafil 20 mg Tablet
20 mg PO DAILY PRN (Reason: ED)
Creon 24,000-76,000 -120,000 unit Capsule,Delayed Release(Dr/Ec)
4 cap PO AC
Patient Comments:
4 capsules with meals TID
docusate sodium 100 mg Capsule
100 mg PO BID Qty: 0 0RF
lorazepam 1 mg Tablet
0.5 mg PO TID Qty: 9 0RF
venlafaxine 75 mg Capsule,Extended Release 24hr
75 mg PO DAILY Qty: 0 0RF
polyethylene glycol 3350 17 gram Powder In Packet
17 g PO DAILY Qty: 0 0RF
tamsulosin 0.4 mg Capsule
0.8 mg PO DAILY Qty: 0 0RF
folic acid 1 mg Tablet
1 mg PO DAILY Qty: 0 0RF
metoprolol tartrate 25 mg Tablet
12.5 mg PO BID Qty: 0 0RF
primidone 50 mg Tablet
50 mg PO DAILY Qty: 0 0RF
gabapentin 400 mg Capsule
400 mg PO BID Qty: 0 0RF
thiamine HCl (vitamin B1) 100 mg Tablet
200 mg PO DAILY Qty: 0 0RF
topiramate 25 mg Tablet
25 mg PO HS Qty: 0 0RF
pantoprazole 40 mg Tablet,Delayed Release (Dr/Ec)
40 mg PO DAILY Qty: 0 0RF
cefdinir 300 mg Capsule
300 mg PO Q12 Qty: 0 0RF
finasteride 5 mg Tablet
5 mg PO DAILY Qty: 0 0RF
Xarelto 20 mg Tablet
20 mg PO QPM Qty: 0 0RF
olanzapine 5 mg Tablet,Disintegrating
2.5 mg PO HS Qty: 1 0RF
Referrals:
Lele Farnsworth MD [Family Provider] -
Activity Restrictions/Additional Instructions:
You have remained in a normal sinus rhythm throughout your stay in the ER. Your hemoglobin is near baseline. Currently it is 10.4. Continue your medications and follow-up with your lsw. Your electrolytes are normal.
Interventions
Interventions:
*Risk Screen - Suicide Last Done: 07/04/24 14:07
*General Assessment Last Done: 07/04/24 13:35
*Neglect/Abuse Screening Last Done: 07/04/24 14:07
ED- Fall Risk Assessment Last Done: 07/04/24 14:07
*ED COVID-19 Vaccine History Last Done: 07/04/24 13:35
ED- Cardiac Assessment Last Done: 07/04/24 14:07
ED- Pulmonary Assessment Last Done: 07/04/24 14:07
Discharge Date and Time
Print Language: URDU
[2024-07-04 14:05] VITALS: BMI 25.7
[2024-07-04 14:06] VITALS: BP 113/65
[2024-07-04 14:53] LABS: Blood Urea Nitrogen 11 mg/dl (9-20); Calcium 9.7 mg/dl (8.4-10.2); Carbon Dioxide 26 mmol/L (22-30); Chloride 104 mmol/L (98-107); Estimated Creatinine Clearance 67 ml/min; Glucose 100 mg/dl (70-99); Potassium 3.8 mmol/L (3.5-5.1); Sodium 141 mmol/L (135-145); eGFR > 60.00
[2024-07-04 14:57] LABS: % Basophils 0.8 % (0-2); % Eosinophils 2.7 % (0-6); % Immature Granulocytes 0.3 % (0-0.5); % Lymphocytes 10.9 % (20.5-51.1); % Monocytes 8.7 % (1.7-9.3); % Neutrophils 76.6 % (42.2-75.2); Absolute Eosinophils 0.1 10^3/uL (0-0.7); Absolute Lymphocytes 0.4 10^3/uL (1.2-3.4); Absolute Monocytes 0.3 10^3/uL (0.1-0.6); Absolute Neutrophils 2.8 10^3/uL (1.4-6.5); Hematocrit 32.3 % (39.0-52.0); Hemoglobin 10.4 g/dL (13.0-18.0); Mean Corp Hgb Conc. 32.2 g/dL (33.0-37.0); Mean Corpuscular Hgb 27.7 pg (27.0-31.0); Mean Corpuscular Volume 85.9 fL (80.0-94.0); Mean Platelet Volume 12.4 fL (7.4-10.4); Nucleated Red Blood Cells % 0 % (-); Platelet Count 151 10^3/uL (130-400); Red Blood Cell Count 3.76 10^6/uL (4.70-6.10); Red Cell Dist. Width 14.6 % (11.5-14.5); White Blood Cell Count 3.7 10^3/uL (4.8-10.8)
[2024-07-04 15:00] VITALS: BP 130/71
== END 2024-07-04 15:45 | disposition home or self-care (01) ==
LOC: EMR 13:34
PROVIDERS: EMERGENCY PHYSICIAN Emergency Medicine; FAMILY PHYSICIAN Internal Medicine
DX: R53.1 Weakness (principal); I48.91 Unspecified atrial fibrillation; I48.92 Unspecified atrial flutter; I44.0 Atrioventricular block, first degree; I45.10 Unspecified right bundle-branch block; F32.A Depression, unspecified; F41.9 Anxiety disorder, unspecified; K21.9 Gastro-esophageal reflux disease without esophagitis; I10 Essential (primary) hypertension; Z79.01 Long term (current) use of anticoagulants; Z85.118 Personal history of other malignant neoplasm of bronchus and lung; Z98.0 Intestinal bypass and anastomosis status; Z88.5 Allergy status to narcotic agent; Z88.0 Allergy status to penicillin; Z88.8 Allergy status to other drugs, medicaments and biological substances
CPT/HCPCS: 99283; 80048; 83735; 85025; 93005

== ENCOUNTER 2024-07-18 06:33 | Emergency (ER) | payer MEDICARE, OTHER, SELFPAY ==
[2024-07-18] VITALS (11 sets, daily range): BP systolic 109–137; BP diastolic 53–74; BMI 26.2
--- NOTE | 2024-07-18 07:06 | ED.GENMED ---
History of Present Illness
General
Chief Complaint: Fall
Source: patient
Exam Limitations: none
Time Seen by Provider: 07/18/24 06:52
Nursing documentation reviewed up to this point in time: agreed with
History of Present Illness
History of Present Illness:
73-year-old male with past medical history of hypertension, atrial fibrillation on Xarelto, BPH, metastatic lung cancer (receiving treatment at [place]) who presents to the emergency room with his for evaluation of rib pain after fall. Patient
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 He says he did not hit his head, did not lose consciousness. He had immediate pain in his right
ribs and spent most of the day resting in bed yesterday due to pain. This morning continuing to have right rib pain also complaining of right sided upper abdominal pain which she describes as a burning sensation. Brought to the emergency room to
be evaluated. He denies any headache. Denies any neck pain. Denies any back pain. He denies any pain in his arms or his legs although he does have a minor abrasion to his right forearm. He is on Xarelto.
Past History
Past History
ED Past Medical History: Arrthythmia, Cancer (Lung), GERD and HTN
ED Past Surgical History: Bowel resection and Orthopedic
Patient has exhibited threatening behavior?: No
Social History
Tobacco: Non-smoker
Alcohol: Daily
Drug: None
Personal:
Living: with family
Family History
Family History: Negative Early CAD
Review of Systems
Review of Systems
All Other Systems: ROS reviewed and negative except as documented in HPI and ROS
Constitutional: Denies fever
Respiratory: Denies trouble breathing
Cardiac: Reports chest pain (Rib pain); Denies palpitations
ABD/GI: Reports abdominal pain; Denies nausea or vomiting
: Denies flank pain
Musculoskeletal: Denies joint pain, neck pain or back pain
Neurological: Denies dizzy, headache, weakness or numbness
Phy Exam
Physical Exam
Physical Exam:
General: Awake, alert, oriented x3; no acute distress
Head: Normocephalic, atraumatic
Eyes: Conjunctiva normal, pupils equal round reactive to light bilaterally
Throat: Airway intact, handling secretions
Neck: Trachea midline, supple without meningismus
Lungs: Clear to auscultation bilaterally, no wheezing, rales, rhonchi
Heart: Regular rate and rhythm, no murmurs, gallops, or rubs; patient has tenderness to palpation right anterior lateral ribs 6 through 10 roughly anterior axillary line, no crepitus, no ecchymosis
Abd: Soft, non distended, tender to palpation across the upper abdomen most pronounced on the right
Back: No signs of trauma to the back or flank, no tenderness in the thoracic or lumbar spine
Neuro: Patient has resting tremor (known history of essential tremor), no gross neurologic deficits otherwise
Skin: Minor abrasion to right forearm, some old appearing bruising to the right forearm as well
Extremities: Skin findings on the right forearm as above but no tenderness, full range of motion of the upper extremities, no signs of acute trauma to the lower extremities and moves both lower extremities through full range of motion without pain;
strong palpable pulses in all extremities
Scores
Heart Failure Risk
Heart Failure Risk Score: Not Applicable
Heart Score for Chest Pain Patients
STEMI patient?: Not applicable
Withdrawal Assessment of Alcohol
Withdrawal Assessment Completed?: Not applicable
Course
Orders/Labs/Results
Orders:
Orders
07/18/24 07:01
CT Chest/abd/pel W Iv Cont Urgent
Comment:
Reason For Exam: right lower rib pain, upper abd pain s/p fall
07/18/24 07:03
Morphine Sulfate 4 mg IV NOW STA
07/18/24 07:17
Type+Screen Urgent
Alcohol Urgent
Complete Blood Count/With Diff Urgent
Comprehensive Metabolic Panel Urgent
PTT Urgent
Prothrombin Time Urgent
07/18/24 08:59
CT Head W/o Iv Contrast Urgent
Comment:
Reason For Exam: fall on AC
07/18/24 09:00
CT Cervical Spine W/o Iv Contr Urgent
Comment:
Reason For Exam: fall on AC
07/18/24 09:22
HYDROmorphone [Dilaudid] 1 mg IV NOW STA
Abnormal Lab Results
07/18/24
07:17
WBC 4.2 L 10^3/uL
(4.8-10.8)
RBC 3.45 L 10^6/uL
(4.70-6.10)
Hgb 9.6 L g/dL
(13.0-18.0)
Hct 30.0 L %
(39.0-52.0)
MCHC 32.0 L g/dL
(33.0-37.0)
RDW 14.6 H %
(11.5-14.5)
Plt Count 113 L 10^3/uL
(130-400)
MPV 12.5 H fL
(7.4-10.4)
Absolute Lymphs (auto) 0.5 L 10^3/uL
(1.2-3.4)
Lymphocytes % 12.4 L %
(20.5-51.1)
Monocytes % 10.2 H %
(1.7-9.3)
PT 21.3 H Sec
(11.4-14.6)
APTT 36.5 H Sec
(23.4-35.0)
Glucose 140 H mg/dl
(70-99)
Total Protein 5.7 L g/dl
(6.3-8.2)
07/18/24 07:17
07/18/24 07:17
Vital Signs
Initial and Last Documented VS:
Initial Vital Signs
Temp Pulse Resp BP Pulse Ox
36.6 C 80 18 109/53 99
07/18/24 06:35 07/18/24 06:35 07/18/24 06:35 07/18/24 06:35 07/18/24 06:35
Last Documented Vital Signs
Temp Pulse Resp BP Pulse Ox
36.6 C 80 21 125/73 100
07/18/24 06:35 07/18/24 10:45 07/18/24 10:45 07/18/24 10:00 07/18/24 10:45
MDM/Problems Addressed
Differential Diagnosis Includes:
Rib fracture, bruised ribs, hepatic laceration, pneumothorax, hemothorax
MDM/Problems Addressed:
73-year-old male with history as above notable for A-fib on Xarelto and has metastatic cancer presents to the emergency room with his for evaluation of rib pain and abdominal pain after a fall yesterday at 2 AM while going to the bathroom. No
head trauma and patient 24+ hours removed from fall with no headache and GCS of 15�no indication for CT head at this point. Will proceed with CT of the chest/abdomen/pelvis to evaluate for rib fracture or intra-abdominal injury. Will place an IV
send labs including CBC and CMP, coags, type and screen. Treat pain. Monitor closely reassess after the above.
CT chest/abdomen/pelvis reviewed in real-time by me�at least single rib fracture noted with pneumothorax on the right�given his significant injury I did add a CT head and cervical spine in an abundance of caution. Awaiting full radiology report of
imaging. Will ultimately require trauma center transfer. Discussed with patient and �their preference is [facility].
CT head and cervical spine negative. CT chest/abdomen/pelvis�does show 2 rib fractures on the right and a small pneumothorax as above. No intra-abdominal injury. Case discussed with trauma physician at [facility], accepted for transfer by
Dr. Jarrell. Will arrange for transport. Continue to monitor.
Chronic conditions affecting care:
A-fib on Xarelto complicates fall
*Radiology
Radiology exam reviewed: radiology read reviewed
*Pulse Oximetry
Patient hypoxic: no
*Critical Care Note
Total Time (30-74mins, 75-104mins- exclusive of procedures): Not Applicable
Data Reviewed
Source: patient and spouse
Patient Management
Discussion with other providers: Mandarin Chinese Teacher (Discussed with trauma physician at [facility])
Escalation/DeEscalation of care consider admission/obs:
Transfer indicated�trauma center
ED Attending Note
-
Portions of this chart may have been created with voice recognition software.� Occasional wrong word or��sound alike� substitutions may have occurred due to the inherent limitations of voice recognition software.
Discharge Plan
Departure
Patient Disposition: Acute Care Hospital
Date of Disposition: 07/18/24
Time of Disposition: 11:29
Patient with high blood pressure during this ER visit?: No
Discharge Problem:
Fracture of rib, Pneumothorax
Prescriptions:
No Action
finasteride 5 MG tablet
5 mg PO DAILY
diphenoxylate-atropine [Lomotil] 2.5-0.025 mg Tablet
2 tab PO BID
Patient Comments:
05/15/2022: last filled 05/08/22, 240 tabs for 30 days from [facility]
cyanocobalamin (vitamin B-12) 1,000 mcg Tablet
1,000 mcg PO DAILY
tadalafil 20 mg Tablet
20 mg PO DAILY PRN (Reason: ED)
Creon 24,000-76,000 -120,000 unit Capsule,Delayed Release(Dr/Ec)
4 cap PO AC
Patient Comments:
4 capsules with meals TID
docusate sodium 100 mg Capsule
100 mg PO BID Qty: 0 0RF
lorazepam 1 mg Tablet
0.5 mg PO TID Qty: 9 0RF
venlafaxine 75 mg Capsule,Extended Release 24hr
75 mg PO DAILY Qty: 0 0RF
polyethylene glycol 3350 17 gram Powder In Packet
17 g PO DAILY Qty: 0 0RF
tamsulosin 0.4 mg Capsule
0.8 mg PO DAILY Qty: 0 0RF
folic acid 1 mg Tablet
1 mg PO DAILY Qty: 0 0RF
metoprolol tartrate 25 mg Tablet
12.5 mg PO BID Qty: 0 0RF
primidone 50 mg Tablet
50 mg PO DAILY Qty: 0 0RF
gabapentin 400 mg Capsule
400 mg PO BID Qty: 0 0RF
thiamine HCl (vitamin B1) 100 mg Tablet
200 mg PO DAILY Qty: 0 0RF
topiramate 25 mg Tablet
25 mg PO HS Qty: 0 0RF
pantoprazole 40 mg Tablet,Delayed Release (Dr/Ec)
40 mg PO DAILY Qty: 0 0RF
cefdinir 300 mg Capsule
300 mg PO Q12 Qty: 0 0RF
finasteride 5 mg Tablet
5 mg PO DAILY Qty: 0 0RF
Xarelto 20 mg Tablet
20 mg PO QPM Qty: 0 0RF
olanzapine 5 mg Tablet,Disintegrating
2.5 mg PO HS Qty: 1 0RF
Referrals:
Lele Farnsworth MD [Family Provider] -
Hospital Transfer
Other hospital: [facility]
I certify that the patient requires transfer: Yes
Discussed case with accepting physician: Dr. Jarrell
Reason for transfer: higher level of care and specialties available
Interventions
Interventions:
*Risk Screen - Suicide Last Done: 07/18/24 06:35
*General Assessment Last Done: 07/18/24 06:35
*Neglect/Abuse Screening Last Done: 07/18/24 06:35
ED- Fall Risk Assessment Last Done: 07/18/24 07:03
*ED COVID-19 Vaccine History Last Done: 07/18/24 06:44
ED-Musculoskeletal Assessment Last Done: 07/18/24 06:44
ED- Neurological Assessment Last Done: 07/18/24 06:44
ED-Skin Assessment Last Done: 07/18/24 06:44
Discharge Date and Time
Print Language: FAROESE
[2024-07-18] MEDS: MORPHINE SULFATE 4 MG IV (07:19)
[2024-07-18 07:42] LABS: % Basophils 0.7 % (0-2); % Eosinophils 2.4 % (0-6); % Immature Granulocytes 0.5 % (0-0.5); % Lymphocytes 12.4 % (20.5-51.1); % Monocytes 10.2 % (1.7-9.3); % Neutrophils 73.8 % (42.2-75.2); Absolute Eosinophils 0.1 10^3/uL (0-0.7); Absolute Lymphocytes 0.5 10^3/uL (1.2-3.4); Absolute Monocytes 0.4 10^3/uL (0.1-0.6); Absolute Neutrophils 3.1 10^3/uL (1.4-6.5); Hemoglobin 9.6 g/dL (13.0-18.0); Mean Corpuscular Hgb 27.8 pg (27.0-31.0); Mean Platelet Volume 12.5 fL (7.4-10.4); Nucleated Red Blood Cells % 0 % (-); Platelet Count 113 10^3/uL (130-400); Red Blood Cell Count 3.45 10^6/uL (4.70-6.10); Red Cell Dist. Width 14.6 % (11.5-14.5); White Blood Cell Count 4.2 10^3/uL (4.8-10.8)
[2024-07-18 07:59] LABS: INR 1.86; PT 21.3 Sec (11.4-14.6)
[2024-07-18 08:00] LABS: APTT 36.5 Sec (23.4-35.0)
[2024-07-18 08:25] LABS: ALT (SGPT) 13 U/L (0-50); AST (SGOT) 22 U/L (17-59); Albumin 3.5 g/dl (3.5-5.0); Alkaline Phosphatase 69 U/L (38-126); Blood Urea Nitrogen 16 mg/dl (9-20); Calcium 9.2 mg/dl (8.4-10.2); Carbon Dioxide 26 mmol/L (22-30); Chloride 102 mmol/L (98-107); Estimated Creatinine Clearance 74 ml/min; Glucose 140 mg/dl (70-99); Potassium 3.8 mmol/L (3.5-5.1); Sodium 137 mmol/L (135-145); Total Bilirubin 0.7 mg/dl (0.2-1.3); Total Protein 5.7 g/dl (6.3-8.2); eGFR > 60.00
[2024-07-18 08:28] LABS: Alcohol None Detected
[2024-07-18] MEDS: DILAUDID 1 MG IV (09:25)
[2024-07-18] MEDS: DILAUDID 0.5 MG IV (14:14)
== END 2024-07-18 16:34 | disposition short-term general hospital (02) ==
LOC: EMR 06:33
PROVIDERS: EMERGENCY PHYSICIAN Emergency Medicine; FAMILY PHYSICIAN Internal Medicine
DX: S27.0XXA Traumatic pneumothorax, initial encounter (principal); S22.41XA Multiple fractures of ribs, right side, initial encounter for closed fracture; W01.0XXA Fall on same level from slipping, tripping and stumbling without subsequent striking against object, initial encounter; I10 Essential (primary) hypertension; I48.91 Unspecified atrial fibrillation
CPT/HCPCS: 99285; 96374; 96375; 96376; 70450; 71260; 72125; 74177; 80053; 82077; 85025; 85610; 85730; 86850; 86900; 86901; Q9967

== ENCOUNTER 2024-11-14 12:48 | Emergency (ER) | payer MEDICARE, OTHER, SELFPAY ==
[2024-11-14 12:50] VITALS: BP 114/56
[2024-11-14 13:17] LABS: % Basophils 0.9 % (0-2); % Eosinophils 3.4 % (0-6); % Immature Granulocytes 0.3 % (0-0.5); % Monocytes 9.8 % (1.7-9.3); % Neutrophils 73.6 % (42.2-75.2); Absolute Basophils 0.1 10^3/uL (0-0.2); Absolute Eosinophils 0.2 10^3/uL (0-0.7); Absolute Lymphocytes 0.7 10^3/uL (1.2-3.4); Absolute Monocytes 0.6 10^3/uL (0.1-0.6); Absolute Neutrophils 4.3 10^3/uL (1.4-6.5); Hematocrit 32.9 % (39.0-52.0); Hemoglobin 10.3 g/dL (13.0-18.0); Mean Corp Hgb Conc. 31.3 g/dL (33.0-37.0); Mean Corpuscular Hgb 26.8 pg (27.0-31.0); Mean Corpuscular Volume 85.5 fL (80.0-94.0); Mean Platelet Volume 10.8 fL (7.4-10.4); Nucleated Red Blood Cells % 0 % (-); Platelet Count 143 10^3/uL (130-400); Red Blood Cell Count 3.85 10^6/uL (4.70-6.10); Red Cell Dist. Width 14.5 % (11.5-14.5); White Blood Cell Count 5.8 10^3/uL (4.8-10.8)
[2024-11-14 13:34] LABS: ALT (SGPT) 12 U/L (0-50); AST (SGOT) 24 U/L (17-59); Albumin 4.2 g/dl (3.5-5.0); Alkaline Phosphatase 81 U/L (38-126); Blood Urea Nitrogen 12 mg/dl (9-20); Calcium 8.8 mg/dl (8.4-10.2); Carbon Dioxide 25 mmol/L (22-30); Chloride 102 mmol/L (98-107); Glucose 127 mg/dl (70-99); Potassium 3.8 mmol/L (3.5-5.1); Sodium 138 mmol/L (135-145); Total Bilirubin 0.8 mg/dl (0.2-1.3); Total Protein 6.8 g/dl (6.3-8.2); eGFR > 60.00
[2024-11-14 13:37] LABS: Urine Albumin 2+ (Neg - Trace); Urine Bilirubin 1+ (Negative); Urine Character Very Cloudy (Clear); Urine Color Red; Urine Glucose Negative (Negative); Urine Ketone Trace (Negative); Urine Leukocyte 2+ (Negative); Urine Nitrite Negative (Negative); Urine Occult Blood 4+ (Negative); Urine Specific Gravity 1.015 (<1.030); Urine Urobilinogen 3+ (Neg - 1+); Urine pH 6.5 (5.0-9.0)
[2024-11-14 13:53] LABS: Urine Urothelial Cell 0-2 /LPF (FEW)
[2024-11-14 13:55] LABS: Urine Bacteria Few (Negative); Urine Red Blood Cell 80-90 /HPF (0-2); Urine White Cell 16-20 /HPF (0-5)
--- NOTE | 2024-11-14 16:40 | ED.GENMED ---
History of Present Illness
General
Chief Complaint: Male Genito-Urinary Symptoms
Source: patient and spouse
Exam Limitations: none
Time Seen by Provider: 11/14/24 16:07
Nursing documentation reviewed up to this point in time: agreed with
History of Present Illness
History of Present Illness:
73-year-old male history of BPH on Flomax atraumatic nonpainful hematuria for less than 12 hours no fever no nausea no vomiting was on Xarelto stopped recently now on Plavix and metoprolol does not have a urologist, no flank pain no history of
kidney stones able to empty his bladder without difficulty no dysuria or frequency
Past History
Past History
ED Past Medical History: Arrthythmia, Cancer (Lung), GERD and HTN
ED Past Surgical History: Bowel resection and Orthopedic
Patient has exhibited threatening behavior?: No
Social History
Tobacco: Non-smoker
Alcohol: Daily
Drug: None
Personal:
Living: with family
Family History
Family History: Negative Early CAD
Review of Systems
Review of Systems
All Other Systems: Not applicable
Constitutional: Denies fever or fatigue
EENT: Reports no symptoms
Respiratory: Reports no symptoms
Cardiac: Reports no symptoms
ABD/GI: Denies abdominal pain or diarrhea
: Reports bleeding; Denies dysuria, frequency, incontinence or difficulty voiding
Skin: Reports no symptoms
Neurological: Reports no symptoms
Phy Exam
Physical Exam
Physical Exam:
Physical Exam
General: no apparent distress, not acutely ill
Neck: No jaundice
Heart: s1/s2 regular rate and rhythm, no murmur. equal radial pulses.
Lungs: no acute respiratory distress. clear bilaterally
Abdomen: Soft nontender no CVA tenderness circumcised, some mild amount of blood in his depends
Neuro: alert and oriented. no focal neurological deficits
Skin: no rash
Psychiatric: well kept. interactive and cooperative
Extremities: no edema.
Course
Orders/Labs/Results
Orders:
Orders
11/14/24 13:10
Complete Blood Count/With Diff Urgent
Comprehensive Metabolic Panel Urgent
Urinalysis Reflex To Culture Urgent
Date Specimen was Collected: 11/14/24
Time Specimen was Collected: 12:50
Urine Microscopic Reflex Cult Urgent
Urine Culture Urgent
SEBASTIÁN Source: U
Specimen Description:
Date Specimen was Collected: 11/14/24
Time Specimen was Collected: 12:50
11/14/24 16:33
Bladder Scan- Treatment ONCE
Abnormal Lab Results
11/14/24
13:10
RBC 3.85 L 10^6/uL
(4.70-6.10)
Hgb 10.3 L g/dL
(13.0-18.0)
Hct 32.9 L %
(39.0-52.0)
MCH 26.8 L pg
(27.0-31.0)
MCHC 31.3 L g/dL
(33.0-37.0)
MPV 10.8 H fL
(7.4-10.4)
Absolute Lymphs (auto) 0.7 L 10^3/uL
(1.2-3.4)
Lymphocytes % 12.0 L %
(20.5-51.1)
Monocytes % 9.8 H %
(1.7-9.3)
Glucose 127 H mg/dl
(70-99)
Urine Ketones Trace A
(Negative)
Ur Occult Blood Reflex 4+ A
(Negative)
Urine Bilirubin 1+ A
(Negative)
Urine Urobilinogen 3+ A
(Neg - 1+)
Leukocyte Esterase Rfl 2+ A
(Negative)
Urine RBC 80-90 A /HPF
(0-2)
Urine WBC (Reflex) 16-20 A /HPF
(0-5)
Urine Bacteria (Reflex) Few A
(Negative)
Urine Albumin (Reflex) 2+ A
(Neg - Trace)
11/14/24 13:10
11/14/24 13:10
Vital Signs
Initial and Last Documented VS:
Initial Vital Signs
Temp Pulse Resp BP Pulse Ox
98.5 F 78 18 114/56 96
11/14/24 12:50 11/14/24 12:50 11/14/24 12:50 11/14/24 12:50 11/14/24 12:50
Last Documented Vital Signs
Temp Pulse Resp BP Pulse Ox
98.5 F 78 18 114/56 96
11/14/24 12:50 11/14/24 12:50 11/14/24 12:50 11/14/24 12:50 11/14/24 12:50
MDM/Problems Addressed
Differential Diagnosis Includes:
UTI, malignancy, stone
MDM/Problems Addressed:
No signs of clot retention no longer on anticoag
Chronic conditions affecting care:
Plavix
Acute Exacerbation and/or Progression of Chronic Illness:
Plavix
*Pulse Oximetry
Patient hypoxic: no
*Critical Care Note
Total Time (30-74mins, 75-104mins- exclusive of procedures): Not Applicable
Update Note
Update Note:
Update, patient nontoxic no clots or clot retention, urinalysis noted culture pending will start on antibiotics empirically follow-up with PCP and urology
ED Attending Note
-
Portions of this chart may have been created with voice recognition software.� Occasional wrong word or��sound alike� substitutions may have occurred due to the inherent limitations of voice recognition software.
Discharge Plan
Departure
Patient Disposition: Home (Routine Discharge)
Date of Disposition: 11/14/24
Time of Disposition: 16:43
Patient with high blood pressure during this ER visit?: No
Condition: Good
Discharge Problem:
Hematuria
Instructions: Blood in the Urine (Hematuria), Adult (DC)
Prescriptions:
New
cephalexin 500 mg capsule
500 mg PO Q8H 7 Days Qty: 21 0RF
No Action
finasteride 5 MG tablet
5 mg PO DAILY
diphenoxylate-atropine [Lomotil] 2.5-0.025 mg Tablet
2 tab PO BID
Patient Comments:
05/15/2022: last filled 05/08/22, 240 tabs for 30 days from [facility]
cyanocobalamin (vitamin B-12) 1,000 mcg Tablet
1,000 mcg PO DAILY
tadalafil 20 mg Tablet
20 mg PO DAILY PRN (Reason: ED)
Creon 24,000-76,000 -120,000 unit Capsule,Delayed Release(Dr/Ec)
4 cap PO AC
Patient Comments:
4 capsules with meals TID
docusate sodium 100 mg Capsule
100 mg PO BID Qty: 0 0RF
lorazepam 1 mg Tablet
0.5 mg PO TID Qty: 9 0RF
venlafaxine 75 mg Capsule,Extended Release 24hr
75 mg PO DAILY Qty: 0 0RF
polyethylene glycol 3350 17 gram Powder In Packet
17 g PO DAILY Qty: 0 0RF
tamsulosin 0.4 mg Capsule
0.8 mg PO DAILY Qty: 0 0RF
folic acid 1 mg Tablet
1 mg PO DAILY Qty: 0 0RF
metoprolol tartrate 25 mg Tablet
12.5 mg PO BID Qty: 0 0RF
primidone 50 mg Tablet
50 mg PO DAILY Qty: 0 0RF
gabapentin 400 mg Capsule
400 mg PO BID Qty: 0 0RF
thiamine HCl (vitamin B1) 100 mg Tablet
200 mg PO DAILY Qty: 0 0RF
topiramate 25 mg Tablet
25 mg PO HS Qty: 0 0RF
pantoprazole 40 mg Tablet,Delayed Release (Dr/Ec)
40 mg PO DAILY Qty: 0 0RF
cefdinir 300 mg Capsule
300 mg PO Q12 Qty: 0 0RF
finasteride 5 mg Tablet
5 mg PO DAILY Qty: 0 0RF
Xarelto 20 mg Tablet
20 mg PO QPM Qty: 0 0RF
olanzapine 5 mg Tablet,Disintegrating
2.5 mg PO HS Qty: 1 0RF
Interventions
Interventions:
*Risk Screen - Suicide Last Done: 11/14/24 12:50
*General Assessment Last Done: 11/14/24 12:50
*ED COVID-19 Vaccine History Last Done: 11/14/24 12:50
Discharge Date and Time
Print Language: ALBANIAN
[2024-11-14 17:07] VITALS: BP 119/62
[2024-11-14] MEDS: KEFLEX 500 MG PO ×2 (17:14)
[2024-11-14 17:33] VITALS: BP 119/62
== END 2024-11-14 17:35 | disposition home or self-care (01) ==
LOC: EMR 12:48
PROVIDERS: Emergency Medicine; EMERGENCY PHYSICIAN Emergency Medicine; FAMILY PHYSICIAN Internal Medicine
DX: R31.9 Hematuria, unspecified (principal); N40.0 Benign prostatic hyperplasia without lower urinary tract symptoms; K21.9 Gastro-esophageal reflux disease without esophagitis; I10 Essential (primary) hypertension; M54.30 Sciatica, unspecified side; I48.91 Unspecified atrial fibrillation; G47.30 Sleep apnea, unspecified; C78.7 Secondary malignant neoplasm of liver and intrahepatic bile duct; C79.51 Secondary malignant neoplasm of bone; G62.9 Polyneuropathy, unspecified; M10.9 Gout, unspecified; F41.9 Anxiety disorder, unspecified; F32.A Depression, unspecified; Z85.118 Personal history of other malignant neoplasm of bronchus and lung; Z92.3 Personal history of irradiation; Z90.2 Acquired absence of lung [part of]; Z98.0 Intestinal bypass and anastomosis status
CPT/HCPCS: 99283; 51798; 80053; 81003; 81015; 85025; 87077; 87086; 87186

== ENCOUNTER 2025-03-05 02:47 | Emergency (ER) | payer MEDICARE, OTHER, SELFPAY ==
[2025-03-05 02:47] VITALS: BMI 24.6
[2025-03-05 02:49] VITALS: BP 113/57
[2025-03-05 03:18] VITALS: BP 114/59
[2025-03-05 04:00] VITALS: BP 107/53
[2025-03-05 05:12] VITALS: BP 121/69
--- NOTE | 2025-03-05 05:36 | ED.GENMED ---
History of Present Illness
General
Chief Complaint: Musculo-Skeletal Complaint
Source: patient
Exam Limitations: none
Time Seen by Provider: 03/05/25 03:29
Nursing documentation reviewed up to this point in time: agreed with
History of Present Illness
History of Present Illness:
74-year-old male with a history of neuroendocrine cancer, alcohol abuse, essential tremor presents for
Bruising and pain to his left ankle, foot and knee pain after a fall. Patient says he fell in a gopher hole on his property 4 days ago. He thinks he sprained his ankle. He he was not aware that he hit his head but he has a bruise above his left
eye. He has no headaches, neck pain
he is able to walk
he said he came at this hour today because he figured he wouldn't have to wait long
pt is not on blood thinners, was formerly on xarelto but it looks as if it was d/c'd some time ago
pt doesn't know his meds
he has essential trmor and says he uses a cane to walk sometimes
but he can get around without it
he has a walker at home as well
Past History
Past History
ED Past Medical History: Arrthythmia, Cancer (Lung), GERD and HTN
ED Past Surgical History: Bowel resection and Orthopedic
Patient has exhibited threatening behavior?: No
Social History
Tobacco: Non-smoker
Alcohol: Daily
Drug: None
Personal:
Living: with family
Family History
Family History: Negative Early CAD
Review of Systems
Review of Systems
Allergies reviewed?: Yes
All Other Systems: Not applicable
Phy Exam
Physical Exam
Physical Exam:
GENERAL: Alert , in no apparent distress
head: L superior orbital ecchymosis, nontender, no swelling
EYE: pupils equal and reactive, eoms intact
NECK: Supple
ENT: o/p clr, mmm.
CARDIAC: Regular rate and rhythm .
LUNGS: Clear breath sounds bilaterally, no acute respiratory distress, no wheezes/rales/rhonchi
ABDOMEN: Soft, without focal tenderness, no r/g, no cvat, normal bowel sounds
NEUROLOGICAL: Alert and oriented, no focal neuro deficits, essential tremor; worse with intension; fatigues; moving all extremities;
SKIN: Warm and dry, skin intact.
significant bruising L ankle and foot;
mild STS
no wounds
mild bruising R medial knee, nontender
MUSCULOSKELETAL:arthritic changes to b/l knees
full ROm of right lower extremity
L knee full rom but with mild pain
more pain with flexion
L ankle swelling bruising some mild tenderness
able to move it
foot nontender but moderately bruised
PSYCH: Normal and appropriate interaction.
Course
Orders/Labs/Results
Orders:
Orders
03/05/25 03:46
Ankle, left 3 view CR [CR Ankle - Left Min 3 Views ] Urgent
Comment:
Reason For Exam: left ankle pain/swelling afte rfall
CR Foot - Left Min 3 Views Urgent
Comment:
Reason For Exam: left foot pain/swelling/bruising after fall
CR Knee - Left 4 Or More View* Urgent
Comment:
Reason For Exam: left knee pain after fall
03/05/25 03:47
CT Head W/o Iv Contrast Urgent
Comment:
Reason For Exam: fall, black eye; neuroendocrine ca;
03/05/25 04:05
CT Facial Bones W/o Iv Contras Urgent
Comment:
Reason For Exam: fall eye bruising
Vital Signs
Initial and Last Documented VS:
Initial Vital Signs
Temp Pulse Resp BP Pulse Ox
36.7 C 78 18 113/57 99
03/05/25 02:49 03/05/25 02:49 03/05/25 02:49 03/05/25 02:49 03/05/25 02:49
Last Documented Vital Signs
Temp Pulse Resp BP Pulse Ox
36.7 C 78 18 114/59 100
03/05/25 02:49 03/05/25 02:49 03/05/25 02:49 03/05/25 03:18 03/05/25 03:21
MDM/Problems Addressed
Differential Diagnosis Includes:
ankle sprain, ankle fracture, knee sprain, head injury
MDM/Problems Addressed:
74y/o M
essential tremor, neuroendocrine tumor
mechanical fall in a hole in the grass 4 daysa go
some persistent MSK pain (L knee, ankle, foot) but is ambulatory
doesn't recall hitting head but has a black eye
xrays indep reviewed by me
pt has some calcificaitons but no fx
ambulated well with air cast
ct head/fb neg
d/c home
*Critical Care Note
Total Time (30-74mins, 75-104mins- exclusive of procedures): Not Applicable
ED Attending Note
-
Portions of this chart may have been created with voice recognition software.� Occasional wrong word or��sound alike� substitutions may have occurred due to the inherent limitations of voice recognition software.
Discharge Plan
Departure
Patient Disposition: Home (Routine Discharge)
Date of Disposition: 03/05/25
Time of Disposition: 05:45
Patient with high blood pressure during this ER visit?: No
Condition: Fair
Covid-19: Not Applicable
Discharge Problem:
Left ankle sprain, Ecchymosis, Left knee sprain, Fall
Instructions: Sprain (DC)
Prescriptions:
No Action
finasteride 5 MG tablet
5 mg PO DAILY
diphenoxylate-atropine [Lomotil] 2.5-0.025 mg Tablet
2 tab PO BID
Patient Comments:
05/15/2022: last filled 05/08/22, 240 tabs for 30 days from [facility]
cyanocobalamin (vitamin B-12) 1,000 mcg Tablet
1,000 mcg PO DAILY
tadalafil 20 mg Tablet
20 mg PO DAILY PRN (Reason: ED)
Creon 24,000-76,000 -120,000 unit Capsule,Delayed Release(Dr/Ec)
4 cap PO AC
Patient Comments:
4 capsules with meals TID
docusate sodium 100 mg Capsule
100 mg PO BID Qty: 0 0RF
lorazepam 1 mg Tablet
0.5 mg PO TID Qty: 9 0RF
venlafaxine 75 mg Capsule,Extended Release 24hr
75 mg PO DAILY Qty: 0 0RF
polyethylene glycol 3350 17 gram Powder In Packet
17 g PO DAILY Qty: 0 0RF
tamsulosin 0.4 mg Capsule
0.8 mg PO DAILY Qty: 0 0RF
folic acid 1 mg Tablet
1 mg PO DAILY Qty: 0 0RF
metoprolol tartrate 25 mg Tablet
12.5 mg PO BID Qty: 0 0RF
primidone 50 mg Tablet
50 mg PO DAILY Qty: 0 0RF
gabapentin 400 mg Capsule
400 mg PO BID Qty: 0 0RF
thiamine HCl (vitamin B1) 100 mg Tablet
200 mg PO DAILY Qty: 0 0RF
topiramate 25 mg Tablet
25 mg PO HS Qty: 0 0RF
pantoprazole 40 mg Tablet,Delayed Release (Dr/Ec)
40 mg PO DAILY Qty: 0 0RF
cefdinir 300 mg Capsule
300 mg PO Q12 Qty: 0 0RF
finasteride 5 mg Tablet
5 mg PO DAILY Qty: 0 0RF
Xarelto 20 mg Tablet
20 mg PO QPM Qty: 0 0RF
olanzapine 5 mg Tablet,Disintegrating
2.5 mg PO HS Qty: 1 0RF
cephalexin 500 mg capsule
500 mg PO Q8H 7 Days Qty: 21 0RF
Referrals:
Lele Farnsworth MD [Family Provider] - Follow up in 5-7 days
Activity Restrictions/Additional Instructions:
YOUR XRAYS DO NOT LOOK LIKE YOU HAVE A FRACTURE
YOU PROBABLY SPRAINED YOUR ANKLE AND KNEE
TAKE TYLENOL FOR PAIN NEEDED
ICE OFF AND ON
USE THE SPLINT WHEN YOU ARE WALKING AROUND, TAKE IT OFF AT NIGHT WHEN YOU ARE SLEPEING
FOLLOW UPW ITH ORTHOPEDICS
RETURN FOR SEVERE PAIN OR ANY CONCERNS
Interventions
Interventions:
*Risk Screen - Suicide Last Done: 03/05/25 02:49
*General Assessment Last Done: 03/05/25 02:49
*Neglect/Abuse Screening Last Done: 03/05/25 02:49
*ED- Fall Risk Assessment Last Done: 03/05/25 02:49
*ED COVID-19 Vaccine History Last Done: 03/05/25 02:49
ED-Musculoskeletal Assessment Last Done: 03/05/25 03:20
Discharge Date and Time
Print Language: TAMAZIGHT
== END 2025-03-05 06:09 | disposition home or self-care (01) ==
LOC: EMR 02:47
PROVIDERS: EMERGENCY PHYSICIAN Student in an Organized Health Care Education/Training Program; FAMILY PHYSICIAN Internal Medicine
DX: S93.402A Sprain of unspecified ligament of left ankle, initial encounter (principal); S83.92XA Sprain of unspecified site of left knee, initial encounter; S90.02XA Contusion of left ankle, initial encounter; S80.02XA Contusion of left knee, initial encounter; S00.10XA Contusion of unspecified eyelid and periocular area, initial encounter; W17.2XXA Fall into hole, initial encounter; G25.0 Essential tremor; I10 Essential (primary) hypertension
CPT/HCPCS: 99284; 70450; 70486; 73564; 73610; 73630

== ENCOUNTER 2025-05-29 20:12 | Observation (INO) | payer MEDICARE, OTHER, SELFPAY ==
[2025-05-29] VITALS (10 sets, daily range): BP systolic 98–142; BP diastolic 52–89; BMI 24.9; BMI 23.8
--- NOTE | 2025-05-29 13:10 | ED.GENMED ---
History of Present Illness
<Dustin Russ PA-C - Last Filed: 05/29/25 18:02>
General
Chief Complaint: Swelling
Time Seen by Provider: 05/29/25 12:50
History of Present Illness
History of Present Illness:
74-year-old male with history of stage IV lung cancer (treatment at [facility]), A-fib status post Watchman, hypertension and essential tremor presents to the emergency department for evaluation of severe left arm swelling that began upon waking up this
morning. He reports mild discomfort to the left elbow but denies any paresthesias. No chest pain or shortness of breath. No fevers or chills. Denies trauma to the arm. He is on Plavix but no longer on oral anticoagulants
Past History
<Dustin Russ PA-C - Last Filed: 05/29/25 18:02>
Past History
ED Past Medical History: Arrthythmia, Cancer (Lung), GERD and HTN
ED Past Surgical History: Bowel resection and Orthopedic
Patient has exhibited threatening behavior?: No
Social History
Tobacco: Non-smoker
Alcohol: Daily
Drug: None
Personal:
Living: with family
Family History
Family History: Negative Early CAD
Review of Systems
<Dustin Russ PA-C - Last Filed: 05/29/25 18:02>
Review of Systems
Allergies reviewed?: Yes
All Other Systems: ROS reviewed and negative except as documented in HPI and ROS
Phy Exam
<DIPIKA Yan Last Filed: 05/29/25 18:02>
Physical Exam
Physical Exam:
GEN: Well appearing, NAD, WDWN
HEENT: Oral mucosa moist, no scleral icterus
Cardiac: Regular rate
Lung: No respiratory distress, no tachypnea, lungs clear to auscultation bilaterally
MSK: Massive edema of the left upper extremity, brachial and radial pulses intact by Doppler, sensation to the hand and arm intact in all carson, diffuse cyanosis/violaceous hue to the entire extremity
Skin: Good color, no pallor or jaundice, no rashes
Neuro: AO x3, moves all extremities freely
Psych: Calm, cooperative
Scores
<Dustin Russ PA-C - Last Filed: 05/29/25 18:02>
Heart Failure Risk
Heart Failure Risk Score: Not Applicable
Course
<Dustin Russ PA-C - Last Filed: 05/29/25 18:02>
Orders/Labs/Results
Orders:
Orders
05/29/25 13:00
CR Chest - 2 Views Urgent
Comment:
Reason For Exam: LUE edema
Venous Doppler Upr Ext Left [US Periph Venous UPPER Ext LT] Urgent
Comment:
Reason For Exam: LUE edema
05/29/25 13:04
Complete Blood Count/With Diff Urgent
Comprehensive Metabolic Panel Urgent
05/29/25 14:44
CT Chest Angio W/wo Iv Contras Urgent
Comment: CTV/venogram protocol
Reason For Exam: LUE edema
05/29/25 17:53
Enoxaparin Sodium [Lovenox] 90 mg SC NOW STA
Abnormal Lab Results
05/29/25
13:04
WBC 3.6 L 10^3/uL
(4.8-10.8)
RBC 3.80 L 10^6/uL
(4.70-6.10)
Hgb 10.4 L g/dL
(13.0-18.0)
Hct 32.0 L %
(39.0-52.0)
MCHC 32.5 L g/dL
(33.0-37.0)
RDW 16.0 H %
(11.5-14.5)
Plt Count 117 L 10^3/uL
(130-400)
MPV 13.5 H fL
(7.4-10.4)
Absolute Lymphs (auto) 0.4 L 10^3/uL
(1.2-3.4)
Immature Gran % 0.6 H %
(0-0.5)
Lymphocytes % 11.6 L %
(20.5-51.1)
Monocytes % 9.7 H %
(1.7-9.3)
Glucose 112 H mg/dl
(70-99)
Total Protein 6.1 L g/dl
(6.3-8.2)
05/29/25 13:04
05/29/25 13:04
Vital Signs
Initial and Last Documented VS:
Initial Vital Signs
Temp Pulse Resp BP Pulse Ox
97.6 F 88 16 120/74 94
05/29/25 12:26 05/29/25 12:26 05/29/25 12:26 05/29/25 12:26 05/29/25 12:26
Last Documented Vital Signs
Temp Pulse Resp BP Pulse Ox
97.6 F 76 20 129/68 100
05/29/25 12:26 05/29/25 17:30 05/29/25 17:30 05/29/25 17:01 05/29/25 17:15
<Brenda Turcios MD - Last Filed: 05/29/25 17:54>
Orders/Labs/Results
Orders:
Orders
05/29/25 13:00
CR Chest - 2 Views Urgent
Comment:
Reason For Exam: LUE edema
Venous Doppler Upr Ext Left [US Periph Venous UPPER Ext LT] Urgent
Comment:
Reason For Exam: LUE edema
05/29/25 13:04
Complete Blood Count/With Diff Urgent
Comprehensive Metabolic Panel Urgent
05/29/25 14:44
CT Chest Angio W/wo Iv Contras Urgent
Comment: CTV/venogram protocol
Reason For Exam: LUE edema
05/29/25 17:53
Enoxaparin Sodium [Lovenox] 90 mg SC NOW STA
Abnormal Lab Results
05/29/25
13:04
WBC 3.6 L 10^3/uL
(4.8-10.8)
RBC 3.80 L 10^6/uL
(4.70-6.10)
Hgb 10.4 L g/dL
(13.0-18.0)
Hct 32.0 L %
(39.0-52.0)
MCHC 32.5 L g/dL
(33.0-37.0)
RDW 16.0 H %
(11.5-14.5)
Plt Count 117 L 10^3/uL
(130-400)
MPV 13.5 H fL
(7.4-10.4)
Absolute Lymphs (auto) 0.4 L 10^3/uL
(1.2-3.4)
Immature Gran % 0.6 H %
(0-0.5)
Lymphocytes % 11.6 L %
(20.5-51.1)
Monocytes % 9.7 H %
(1.7-9.3)
Glucose 112 H mg/dl
(70-99)
Total Protein 6.1 L g/dl
(6.3-8.2)
05/29/25 13:04
05/29/25 13:04
Vital Signs
Initial and Last Documented VS:
Initial Vital Signs
Temp Pulse Resp BP Pulse Ox
97.6 F 88 16 120/74 94
05/29/25 12:26 05/29/25 12:26 05/29/25 12:26 05/29/25 12:26 05/29/25 12:26
Last Documented Vital Signs
Temp Pulse Resp BP Pulse Ox
97.6 F 76 20 129/68 100
05/29/25 12:26 05/29/25 17:30 05/29/25 17:30 05/29/25 17:01 05/29/25 17:15
<Dustin Russ PA-C - Last Filed: 05/29/25 18:02>
MDM/Problems Addressed
MDM/Problems Addressed:
Patient's DVT is most likely on the basis of his active cancer treatment. No proximal clots noted. Is concerning that the patient notes that he will likely go home and drink alcohol tonight thus I am hesitant to discharge him on oral
anticoagulants. Additionally his swelling has dramatically worsened throughout his time here thus I feel overnight observation would be prudent to be sure he does not have any arterial vascular compromise with increasing edema. Will admit to the
hospitalist service
<Dustin Russ PA-C - Last Filed: 05/29/25 18:02>
*Pulse Oximetry
SaO2: 94
Oxygen Mode of Delivery: Room air
Patient hypoxic: no
*Critical Care Note
Total Time (30-74mins, 75-104mins- exclusive of procedures): Not Applicable
ED Attending Note
<Dustin Russ PA-C - Last Filed: 05/29/25 18:02>
-
Portions of this chart may have been created with voice recognition software.� Occasional wrong word or��sound alike� substitutions may have occurred due to the inherent limitations of voice recognition software.
<Brenda Turcios MD - Last Filed: 05/29/25 17:54>
ED Attending Note
Patient seen and examined by attending physician: Yes
I performed the substantive portion of visit, reviewed & personally made and approve the management plan that is documented in note by myself or JONA.: Yes
ED Attending Note:
74-year-old male with a history of active neuroendocrine tumor under treatment at [facility] presents with left arm swelling that he and his just noticed today. He denies numbness, tingling, chest pain, shortness of breath, or other complaints. Of
note, patient was on a DOAC, but he had easy bruising and therefore a watchman was recommended and performed. He is now just taking Plavix. No history of intracranial bleed or other more serious bleeding. On exam, 2+ radial ulnar pulses, diffuse
left upper extremity swelling noted without cyanosis, blistering, or other abnormalities. Range of motion preserved. Workup significant for nonocclusive DVT. Given new diagnosis, difficulty in obtaining prompt follow-up, and severity of swelling
so quickly, recommend overnight observation and Lovenox.
Discharge Plan
Departure
Patient Disposition: Admit
Date of Disposition: 05/29/25
Time of Disposition: 17:54
Admit to: Telemetry
Presentation/result/management discussed w/ accepting MD/DO: Hospitalist
Condition: Fair
Discharge Problem:
DVT (deep venous thrombosis)
Prescriptions:
No Action
finasteride 5 MG tablet
5 mg PO DAILY
diphenoxylate-atropine [Lomotil] 2.5-0.025 mg Tablet
2 tab PO BID
Patient Comments:
05/15/2022: last filled 05/08/22, 240 tabs for 30 days from [facility]
cyanocobalamin (vitamin B-12) 1,000 mcg Tablet
1,000 mcg PO DAILY
tadalafil 20 mg Tablet
20 mg PO DAILY PRN (Reason: ED)
Creon 24,000-76,000 -120,000 unit Capsule,Delayed Release(Dr/Ec)
4 cap PO AC
Patient Comments:
4 capsules with meals TID
docusate sodium 100 mg Capsule
100 mg PO BID Qty: 0 0RF
lorazepam 1 mg Tablet
0.5 mg PO TID Qty: 9 0RF
venlafaxine 75 mg Capsule,Extended Release 24hr
75 mg PO DAILY Qty: 0 0RF
polyethylene glycol 3350 17 gram Powder In Packet
17 g PO DAILY Qty: 0 0RF
tamsulosin 0.4 mg Capsule
0.8 mg PO DAILY Qty: 0 0RF
folic acid 1 mg Tablet
1 mg PO DAILY Qty: 0 0RF
metoprolol tartrate 25 mg Tablet
12.5 mg PO BID Qty: 0 0RF
primidone 50 mg Tablet
50 mg PO DAILY Qty: 0 0RF
gabapentin 400 mg Capsule
400 mg PO BID Qty: 0 0RF
thiamine HCl (vitamin B1) 100 mg Tablet
200 mg PO DAILY Qty: 0 0RF
topiramate 25 mg Tablet
25 mg PO HS Qty: 0 0RF
pantoprazole 40 mg Tablet,Delayed Release (Dr/Ec)
40 mg PO DAILY Qty: 0 0RF
cefdinir 300 mg Capsule
300 mg PO Q12 Qty: 0 0RF
finasteride 5 mg Tablet
5 mg PO DAILY Qty: 0 0RF
Xarelto 20 mg Tablet
20 mg PO QPM Qty: 0 0RF
olanzapine 5 mg Tablet,Disintegrating
2.5 mg PO HS Qty: 1 0RF
cephalexin 500 mg capsule
500 mg PO Q8H 7 Days Qty: 21 0RF
Referrals:
Lele Farnsworth MD [Family Provider, Internal Medicine]
Interventions
Interventions:
*Risk Screen - Suicide Last Done: 05/29/25 12:29
*General Assessment Last Done: 05/29/25 13:08
*Neglect/Abuse Screening Last Done: 05/29/25 12:29
*ED- Fall Risk Assessment Last Done: 05/29/25 13:08
*ED COVID-19 Vaccine History Last Done: 05/29/25 13:08
ED- Cardiac Assessment Last Done: 05/29/25 13:08
ED- Pulmonary Assessment Last Done: 05/29/25 13:08
ED-Skin Assessment Last Done: 05/29/25 13:08
Discharge Date and Time
Print Language: CHILEAN
[2025-05-29 13:18] LABS: Hematocrit 32.0 % (39.0-52.0); Hemoglobin 10.4 g/dL (13.0-18.0); Mean Corp Hgb Conc. 32.5 g/dL (33.0-37.0); Mean Corpuscular Volume 84.2 fL (80.0-94.0); Nucleated Red Blood Cells % 0 % (-); Platelet Count 117 10^3/uL (130-400); Red Cell Dist. Width 16.0 % (11.5-14.5)
[2025-05-29 13:26] LABS: ALT (SGPT) 11 U/L (0-50); AST (SGOT) 19 U/L (17-59); Albumin 3.7 g/dl (3.5-5.0); Alkaline Phosphatase 98 U/L (38-126); Blood Urea Nitrogen 13 mg/dl (9-20); Calcium 8.5 mg/dl (8.4-10.2); Carbon Dioxide 25 mmol/L (22-30); Chloride 105 mmol/L (98-107); Glucose 112 mg/dl (70-99); Potassium 3.9 mmol/L (3.5-5.1); Sodium 135 mmol/L (135-145); Total Protein 6.1 g/dl (6.3-8.2); eGFR > 60.00
[2025-05-29] MEDS: LOVENOX 90 MG SC (17:56)
--- NOTE | 2025-05-29 17:59 | HPS.HSE ---
Family Physician
-
Family Physician: Lele Farnsworth
Chief Complaint
-
Left Upper Extremity Swelling
History of Present Illness
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 Patient
reports he noticed the swelling upon waking this morning. He reports some mild discomfort of the arm but denies any numbness of tingling. He denies any prior history of DVT. He denies any trauma to the arm.
Medical History
Past Medical History
Past Medical History: Reports Other
Additional Past Medical History:
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
Paroxysmal Atrial Fibrillation s/p Watchman and Pacemaker
Essential Hypertension
Anxiety/Depression
Alcohol Use Disorder
BPH
Essential Tremor
Past Surgical History: Reports Other
Additional Past Surgical History:
Left Lower Lung Lobectomy
Lumbar Disc Surgery
Rotator Cuff Surgery
Knee Arthroscopy
Shoulder Arthroscopy
Bowel Resection with Colostomy and Subsequent Reversal
Social History
Tobacco: Non-smoker
Alcohol: Daily (3-5 Beers Nightly)
Family History
Family History: Not pertinent
Allergies / Home Medications
Allergies reflects when Allergies were last updated in [facility].
Home Medications with original date entered in [facility]
Allergy/Medication List:
Allergies
Allergy/AdvReac Type Severity Reaction Status Date / Time
meperidine HCl (From Demerol) Allergy sweating;hi Verified 03/05/25 02:49
ves
Penicillins Allergy Hives Verified 03/05/25 02:49
simvastatin Allergy muscular Verified 03/05/25 02:49
Home Medications
finasteride 5 mg tablet 5 mg PO DAILY Urinary issue 08/13/19
cyanocobalamin (vitamin B-12) 1,000 mcg tablet 1,000 mcg PO DAILY Supplement 06/29/22
[id number] 24,000-76,000-120,000 unit capsule,delayed rel (Creon) 4 cap PO AC Supplement 06/29/22
gabapentin 400 mg capsule 400 mg PO HSPRN PRN Pain 05/29/25
gabapentin 400 mg capsule 800 mg PO BID 05/29/25
lorazepam 0.5 mg tablet 0.5 mg PO [id number] PRN anxiety 05/29/25
metoprolol succinate 25 mg tablet,extended release 24 hr 25 mg PO DAILY 05/29/25
oxycodone 5 mg tablet 5 mg PO Q4HPRN PRN Pain 05/29/25
tamsulosin 0.4 mg capsule 0.4 mg PO DAILY 05/29/25
topiramate 50 mg tablet 50 mg PO BID 05/29/25
tramadol 50 mg tablet 50 mg PO Q6HPRN PRN pain 05/29/25
venlafaxine 150 mg capsule,extended release 24 hr 150 mg PO DAILY 05/29/25
zolpidem 10 mg tablet 15 mg PO HSPRN PRN Sleep 05/29/25
Review of Systems
-
A 12 point ROS was completed and negative except as noted: Yes
Constitutional: Denies Fever or Chills
Respiratory: Denies Cough or Trouble Breathing
Cardiac: Denies Chest Pain or Palpitations
Abdomen/GI: Denies Abdominal Pain, Nausea or Vomiting
Physical Exam
Vital Signs
Vital Signs
Temp Pulse Resp BP Pulse Ox
97.6 F 76 20 129/68 100
05/29/25 12:26 05/29/25 17:30 05/29/25 17:30 05/29/25 17:01 05/29/25 17:15
Physical Exam
General: Comfortable and Conversant
HEENT: Anicteric and Moist mucous membranes
Respiratory: Clear and Non Labored Respirations
Cardiac: S1/S2 and Regular Rhythm
GI: Soft and Non Tender
Rectal: Deferred by Provider
Musculoskeletal: No Clubbing, No Cyanosis and Other (Significant Left Upper Extremity Edema)
Skin: Warm and Dry
Neuro: Awake, Alert, Oriented and Nonfocal/grossly intact
Psych: Calm
Laboratory Results
-
05/29/25 13:04
05/29/25 13:04
Laboratory Results
Total Bilirubin 0.8 mg/dl (0.2-1.3) 05/29/25 13:04
AST 19 U/L (17-59) 05/29/25 13:04
ALT 11 U/L (0-50) 05/29/25 13:04
Alkaline Phosphatase 98 U/L (38-126) 05/29/25 13:04
Chest X-Ray:
No acute cardiopulmonary process.
Peripheral Vascular Ultrasound:
1. Nonocclusive thrombus within the left subclavian and axillary veins as described.
2. Very slow flow throughout the left upper extremity. Consider central/cardiac etiologies.
CT Chest Angiography:
1. No obvious thrombosis identified within the heart, superior vena cava or brachiocephalic veins within the limitations as described.
2. Moderate to severe coronary artery calcifications.
3. Known right hepatic lobe neoplasm, slightly progressed.
4. Probable sclerotic osseous metastases within the left humeral head and left third rib. Probable subacute injuries of the lateral right ninth and eighth ribs.
Data Reviewed
-
CT Scan: Report Reviewed by me
Ultrasound: Report Reviewed by me
Lab Data: Labs Reviewed by me
Impression/Plan
-
Left Subclavian and Axiliary Vein Thrombosis
-Continue Lovenox
-Consult Case Management for DOAC pricing
Alcohol Use Disorder, patient with prior history delirium tremens
-Continue thiamine and folic acid
-Monitor MSAS
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
-Patient receives treatment at [facility] with Xgeva
-Continue Oxycodone and Ultram prn for pain
Paroxysmal Atrial Fibrillation s/p Watchman and Pacemaker
-Patient is no longer on anticoagulation
-Continue aspirin
-Continue metoprolol for rate control
Essential Hypertension
-Continue Metoprolol
Anxiety/Depression / Insomnia
-Continue venlafaxine
-Continue lorazepam PRN
-Continue Ambien PRN
Essential Tremor
-Continue Topamax
BPH
-Continue tamsulosin and finasteride
Code Status: Full Code
--- NOTE | 2025-05-29 19:09 | PHANOTE ---
med rec tech 05/29/25: patient is unable to give his own med rec, I called his [facility] [phone], but there was no answer and I could not leave a message.
--- NOTE | 2025-05-29 19:19 | W.PN.UPDATE ---
Update Note
Progress Note Update
This is an addendum to H&P written by Marybeth Khan on 05/29/2025. �Patient seen and examined independently with PA.
74-year-old male past medical history of stage IV neuroendocrine lung cancer on chemotherapy, atrial fibrillation status post watchman currently on aspirin/Plavix, hypertension, essential tremor, presenting for severe left arm swelling.
Venous ultrasound shows nonocclusive thrombus within the left subclavian axillary veins. �CTA shows no obvious thrombosis within the heart, superior vena cava or brachiocephalic veins.
Lovenox twice daily started. �Will discontinue Plavix and continue aspirin after Watchman device. �Case management consulted for pricing for DOAC.
Alcohol withdrawal protocol since high risk for alcohol withdrawal.
[2025-05-29] MEDS: THIAMINE INJECTION 200 MG IV (22:39)
[2025-05-29] MEDS: TOPAMAX 50 MG PO (23:39)
[2025-05-29] MEDS: NEURONTIN 800 MG PO (23:39)
[2025-05-29] MEDS: ROXICODONE 5 MG PO (23:40)
[2025-05-30] MEDS: LOVENOX 90 MG SC (05:25)
[2025-05-30 07:40] VITALS: BP 107/63
[2025-05-30 07:44] LABS: Hematocrit 30.4 % (39.0-52.0); Hemoglobin 9.8 g/dL (13.0-18.0); Mean Corp Hgb Conc. 32.2 g/dL (33.0-37.0); Mean Corpuscular Volume 84.2 fL (80.0-94.0); Platelet Count 104 10^3/uL (130-400); Red Cell Dist. Width 15.9 % (11.5-14.5)
[2025-05-30 07:45] LABS: Blood Urea Nitrogen 12 mg/dl (9-20); Calcium 8.3 mg/dl (8.4-10.2); Carbon Dioxide 23 mmol/L (22-30); Chloride 110 mmol/L (98-107); Estimated Creatinine Clearance 91 ml/min; Glucose 83 mg/dl (70-99); Magnesium 2.1 mg/dl (1.6-2.3); Potassium 3.8 mmol/L (3.5-5.1); Sodium 138 mmol/L (135-145); eGFR > 60.00
--- NOTE | 2025-05-30 08:17 | W.PN.HOSP.TC ---
Today's Communication/Plan
-
Discharge home today
Assessment / Plan
Assessment / Plan
Impression:
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 Patient
reports he noticed the swelling upon waking this morning. He reports some mild discomfort of the arm but denies any numbness of tingling. He denies any prior history of DVT. He denies any trauma to the arm.
Started Lovenox.
Will be discharged on Xarelto.
Assessment/plan:
Left Subclavian and Axiliary Vein Thrombosis
-Continue Lovenox
-Consult Case Management for DOAC pricing
Discharged on Xarelto
Alcohol Use Disorder, patient with prior history delirium tremens
-Continue thiamine and folic acid
-Monitor MSAS
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
-Patient receives treatment at [facility] with Xgeva
-Continue Oxycodone and Ultram prn for pain
Paroxysmal Atrial Fibrillation s/p Watchman and Pacemaker
-Patient is no longer on anticoagulation
-Continue aspirin
-Continue metoprolol for rate control
Essential Hypertension
-Continue Metoprolol
Anxiety/Depression / Insomnia
-Continue venlafaxine
-Continue lorazepam PRN
-Continue Ambien PRN
Essential Tremor
-Continue Topamax
BPH
-Continue tamsulosin and finasteride
Code Status: Full Code
CODE STATUS: Full code
DVT prophylaxis: Lovenox
Diet: Regular diet
Family communication: Discussed with Coco on the phone
Disposition: Discharge home today.
Total time spent on today's encounter was 65 minutes which included time spent in counseling the patient/family regarding diagnosis and treatment plan as listed above, goals of care, and symptom management. Case was discussed with nursing staff,
specialists, and care coordinators/case management. All labs and imaging personally reviewed by me. Remainder the time spent in detailed review of previous records, lab data, imaging, and other medical provider documentation.
Anticipated Discharge: Today
Subjective/Interval History
-
Date of Service: May 30, 2025
Patient seen and examined at bedside, denies any chest pain or shortness of breath, no abdominal pain, no nausea, no vomiting, no diarrhea or constipation.
Objective Data
-
Labs:
Laboratory Results
05/30/25
06:32
WBC 2.9 L
Hgb 9.8 L
Hct 30.4 L
Plt Count 104 L
Sodium 138
Potassium 3.8
Chloride 110 H
Carbon Dioxide 23
BUN 12
Creatinine 0.8
Glucose 83
Calcium 8.3 L
Vital Signs:
Vital Signs
Temp Pulse Resp BP Pulse Ox
97.6 F 77 16 107/63 98
05/30/25 07:40 05/30/25 07:40 05/30/25 07:40 05/30/25 07:40 05/30/25 07:40
Physical Exam
-
General: Well Developed, Well Nourished, No Apparent Distress and Comfortable
HEENT: Normocephalic, Atraumatic, Moist Mucous Membranes, No Ptosis, PERRLA and Nose Appears Normal
Respiratory: Rales and Non Labored Respirations
Cardiac: Regular Rhythm and S1/S2
Breast: Deferred by me
GI: Soft, Nontender, Nondistended and Normal Bowel Sounds
Genito-urinary: No Costovertebral Tender
Musculoskeletal: No Clubbing, No Cyanosis, Edema, Left Upper Extrem and Other (Edema, swelling, redness on left upper EXTR.)
Skin: Warm
Neuro: Awake, Alert, Oriented, AO x 3 and No Motor Deficits
Psych: Calm
Data Reviewed
-
Diagnostic Radiology: Image personally visualized and interpreted and Report Reviewed by me
CT Scan: Image personally visualized and interpreted and Report Reviewed by me
Ultrasound: Image personally visualized and interpreted and Report Reviewed by me
MRI: Image personally visualized and interpreted and Report Reviewed by me
Medical Tests (Nuc Med, Echo etc): Image personally visualized and interpreted and Report Reviewed by me
Labs: Labs Reviewed by me
Old Records: Reviewed
[2025-05-30] MEDS: ZENPEP DELAYED RELEASE CAPSULE 8 CAPSULE PO ×2 (08:48→12:42)
[2025-05-30] MEDS: NEURONTIN 800 MG PO (08:49)
[2025-05-30] MEDS: FOLVITE 1 MG PO (08:49)
[2025-05-30] MEDS: PROSCAR 5 MG PO (08:49)
[2025-05-30] MEDS: FLOMAX 0.4 MG PO (08:50)
[2025-05-30] MEDS: EFFEXOR XR 150 MG PO (08:50)
[2025-05-30] MEDS: TOPAMAX 50 MG PO (08:51)
[2025-05-30] MEDS: THIAMINE INJECTION 200 MG IV (08:51)
[2025-05-30] MEDS: FLUSH (NSS) 1 FLUSH IV (08:51)
[2025-05-30 11:10] VITALS: BP 120/61
[2025-05-30 11:22] VITALS: BMI 23.8
--- NOTE | 2025-05-30 12:04 | W.DCSUMMARY ---
Discharge Summary
Discharge Data
Date of Admission: 05/29/25
Date of Discharge: 05/30/25
Total time spent discharging patient (in min): 40
-
Pending Results: No
Hospital Course
Hospital course
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 Patient
reports he noticed the swelling upon waking this morning. He reports some mild discomfort of the arm but denies any numbness of tingling. He denies any prior history of DVT. He denies any trauma to the arm.
Started Lovenox.
Will be discharged on Xarelto.
During hospitalization patient was treated from the following
Left Subclavian and Axiliary Vein Thrombosis
-Continue Lovenox
-Consult Case Management for DOAC pricing
Discharged on Xarelto
Alcohol Use Disorder, patient with prior history delirium tremens
-Continue thiamine and folic acid
-Monitor MSAS
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
-Patient receives treatment at [facility] with Xgeva
-Continue Oxycodone and Ultram prn for pain
Paroxysmal Atrial Fibrillation s/p Watchman and Pacemaker
-Patient is no longer on anticoagulation
-Continue aspirin
-Continue metoprolol for rate control
Essential Hypertension
-Continue Metoprolol
Anxiety/Depression / Insomnia
-Continue venlafaxine
-Continue lorazepam PRN
-Continue Ambien PRN
Essential Tremor
-Continue Topamax
BPH
-Continue tamsulosin and finasteride
Code Status: Full Code
CODE STATUS: Full code
DVT prophylaxis: Lovenox
Diet: Regular diet
Family communication: Discussed with Coco on the phone
Disposition: Discharge home today.
Total time spent on today's encounter was 40 minutes which included time spent in counseling the patient/family regarding diagnosis and treatment plan as listed above, goals of care, and symptom management. Case was discussed with nursing staff,
specialists, and care coordinators/case management. All labs and imaging personally reviewed by me. Remainder the time spent in detailed review of previous records, lab data, imaging, and other medical provider documentation.
Anticipated Discharge: Today
Discharge Plan
-
Patient Disposition: Home (Routine Discharge)
Discharge Diagnosis/Procedures: Left upper extremity DVT
Diet: As tolerated and Regular
Activity: With assistance and As tolerated
Referrals:
Lele Farnsworth MD [Family Provider, Internal Medicine]
Germán South DO [Active, Hematology / Oncology] - in three to four weeks
Additional Discharge Medication Instructions: Continue aspirin, stop Plavix, Xarelto 15 mg twice day for 21 days then 20 mg daily.
Prescriptions:
New
Xarelto DVT-PE Treat 30d Start 15 mg (42)- 20 mg (9) tablets,dose pack
1 ea PO DIRECTED Qty: 51 0RF
Rx Instructions:
orally as directed 15 mg BID for 21 days then 20 mg daily with supper meal.
aspirin 81 mg capsule
81 mg PO DAILY Qty: 30 0RF
Continued
finasteride 5 MG tablet
5 mg PO DAILY
cyanocobalamin (vitamin B-12) 1,000 mcg Tablet
1,000 mcg PO DAILY
Creon 24,000-76,000 -120,000 unit Capsule,Delayed Release(Dr/Ec)
4 cap PO AC
Patient Comments:
4 capsules with meals TID
gabapentin 400 mg capsule
400 mg PO HSPRN PRN (Reason: Pain)
venlafaxine 150 mg capsule,extended release 24hr
150 mg PO DAILY
tramadol 50 mg tablet
50 mg PO Q6HPRN PRN (Reason: pain)
lorazepam 0.5 mg tablet
0.5 mg PO [id number] PRN (Reason: anxiety)
metoprolol succinate 25 mg tablet extended release 24 hr
25 mg PO DAILY
zolpidem 10 mg tablet
15 mg PO HSPRN PRN (Reason: Sleep)
oxycodone 5 mg tablet
5 mg PO Q4HPRN PRN (Reason: Pain)
topiramate 50 mg tablet
50 mg PO BID
gabapentin 400 mg capsule
800 mg PO BID
tamsulosin 0.4 mg capsule
0.4 mg PO DAILY
Discharge Orders:
Discharge Patient (As Directed); Ordered 05/30/25
Ordered By: Chinmay Claros
Discharge Date and Time
Print Language: THAI
[2025-05-30 13:30] VITALS: BP 92/52
--- NOTE | 2025-05-30 13:40 | CM ---
CM met with pt and spouse bedside
DC order noted and pt independent in room
OG verbally reviewed- copy provided
CM consult for Xarelto pricing
Multiple calls to local [facility] and unable to speak with pharmacist, only can leave messages
Per spouse, she has picked up script already and cost is affordable
Discharge Disposition- home, no needs
== END 2025-05-30 13:53 | disposition home or self-care (01) ==
LOC: 4 EAST ACU 20:12
PROVIDERS: Physician Assistant; Physician Assistant Medical; ADMITTING PHYSICIAN Hospitalist; ATTENDING PHYSICIAN General Practice; EMERGENCY PHYSICIAN Emergency Medicine; FAMILY PHYSICIAN Internal Medicine
DX: I82.622 Acute embolism and thrombosis of deep veins of left upper extremity (principal); F10.10 Alcohol abuse, uncomplicated; C7A.8 Other malignant neuroendocrine tumors; C79.51 Secondary malignant neoplasm of bone; C78.7 Secondary malignant neoplasm of liver and intrahepatic bile duct; C78.00 Secondary malignant neoplasm of unspecified lung; I48.0 Paroxysmal atrial fibrillation; I10 Essential (primary) hypertension; F41.9 Anxiety disorder, unspecified; F32.A Depression, unspecified; G25.0 Essential tremor; N40.0 Benign prostatic hyperplasia without lower urinary tract symptoms; Z79.02 Long term (current) use of antithrombotics/antiplatelets; Z79.899 Other long term (current) drug therapy; G47.00 Insomnia, unspecified
CPT/HCPCS: 71046; 71275; 80048; 80053; 83735; 84100; 85025; 85027; 93971; 96372; 99285; G0378; Q9967

== ENCOUNTER 2025-08-06 15:27 | Emergency (ER) | payer MEDICARE, OTHER, SELFPAY ==
[2025-08-06 15:32] VITALS: BP 124/62
--- NOTE | 2025-08-06 15:50 | ED.GENMED ---
History of Present Illness
General
Chief Complaint: Fall
Time Seen by Provider: 08/06/25 15:42
History of Present Illness
History of Present Illness:
74-year-old male with history of stage IV lung cancer, A-fib, and upper extremity DVT on Eliquis now presents to the emergency department for evaluation of left hip pain after a mechanical fall. Tripped and fell last week, notes swelling to the
lateral aspect of the hip. Is able to walk with pain.
Past History
Past History
ED Past Medical History: Arrthythmia, Cancer (Lung), GERD and HTN
ED Past Surgical History: Bowel resection and Orthopedic
Patient has exhibited threatening behavior?: No
Social History
Tobacco: Non-smoker
Alcohol: Daily
Drug: None
Personal:
Living: with family
Family History
Family History: Negative Early CAD
Review of Systems
Review of Systems
Allergies reviewed?: Yes
All Other Systems: ROS reviewed and negative except as documented in HPI and ROS
Phy Exam
Physical Exam
Physical Exam:
GEN: Well appearing, NAD, WDWN
HEENT: Oral mucosa moist, no scleral icterus
Cardiac: Regular rate
Lung: No respiratory distress, no tachypnea
MSK: Prominent area of swelling focal to the left greater trochanteric bursa, normal hip range of motion otherwise, no ecchymosis
Skin: Good color, no pallor or jaundice, no rashes
Neuro: AO x3, moves all extremities freely
Psych: Calm, cooperative
Course
Orders/Labs/Results
Orders:
Orders
08/06/25 15:34
CR Hip - LT w/wo Pel 2-3 Vw* Urgent
Comment:
Reason For Exam: injury
Include a pelvis x-ray?: Yes
Vital Signs
Initial and Last Documented VS:
Initial Vital Signs
Temp Pulse Resp BP Pulse Ox
98.1 F 88 20 124/62 93
08/06/25 15:32 08/06/25 15:32 08/06/25 15:32 08/06/25 15:32 08/06/25 15:32
Last Documented Vital Signs
Temp Pulse Resp BP Pulse Ox
98.1 F 58 18 122/63 100
08/06/25 15:32 08/06/25 16:06 08/06/25 16:06 08/06/25 16:02 08/06/25 16:02
MDM/Problems Addressed
MDM/Problems Addressed:
XR of the L hip and pelvis independently interpreted by me negative for acute osseus abnormality. Pt requested oxycodone for pain which I have declined. Recommend ortho f/u if hip remains painful
*Pulse Oximetry
SaO2: 93
Oxygen Mode of Delivery: Room air
Patient hypoxic: no
*Critical Care Note
Total Time (30-74mins, 75-104mins- exclusive of procedures): Not Applicable
ED Attending Note
-
Portions of this chart may have been created with voice recognition software.� Occasional wrong word or��sound alike� substitutions may have occurred due to the inherent limitations of voice recognition software.
Discharge Plan
Departure
Patient Disposition: Home (Routine Discharge)
Date of Disposition: 08/06/25
Time of Disposition: 16:26
Patient with high blood pressure during this ER visit?: No
Discharge Problem:
Hematoma of left hip
Instructions: Hip Pointer (DC)
Prescriptions:
No Action
finasteride 5 MG tablet
5 mg PO DAILY
cyanocobalamin (vitamin B-12) 1,000 mcg Tablet
1,000 mcg PO DAILY
Creon 24,000-76,000 -120,000 unit Capsule,Delayed Release(Dr/Ec)
4 cap PO AC
Patient Comments:
4 capsules with meals TID
gabapentin 400 mg capsule
400 mg PO HSPRN PRN (Reason: Pain)
venlafaxine 150 mg capsule,extended release 24hr
150 mg PO DAILY
tramadol 50 mg tablet
50 mg PO Q6HPRN PRN (Reason: pain)
lorazepam 0.5 mg tablet
0.5 mg PO [id number] PRN (Reason: anxiety)
metoprolol succinate 25 mg tablet extended release 24 hr
25 mg PO DAILY
zolpidem 10 mg tablet
15 mg PO HSPRN PRN (Reason: Sleep)
oxycodone 5 mg tablet
5 mg PO Q4HPRN PRN (Reason: Pain)
topiramate 50 mg tablet
50 mg PO BID
gabapentin 400 mg capsule
800 mg PO BID
tamsulosin 0.4 mg capsule
0.4 mg PO DAILY
Xarelto DVT-PE Treat 30d Start 15 mg (42)- 20 mg (9) tablets,dose pack
1 ea PO DIRECTED Qty: 51 0RF
Rx Instructions:
orally as directed 15 mg BID for 21 days then 20 mg daily with supper meal.
aspirin 81 mg capsule
81 mg PO DAILY Qty: 30 0RF
Referrals:
Gabino Aguiar MD [Active, Orthopedics]
Leel Farnsworth MD [Family Provider, Internal Medicine]
Activity Restrictions/Additional Instructions:
Ice often
Follow up with Orthopedics if pain persists
Drainage of this type of hematoma is not typically advised while on blood thinners
Interventions
Interventions:
*Risk Screen - Suicide Last Done: 08/06/25 16:07
*General Assessment Last Done: 08/06/25 15:32
*Neglect/Abuse Screening Last Done: 08/06/25 16:07
*ED- Fall Risk Assessment Last Done: 08/06/25 16:00
*ED COVID-19 Vaccine History Last Done: 08/06/25 16:00
*ED Influenza Vaccine History Last Done: 08/06/25 16:00
*Nursing Disposition Last Done: 08/06/25 16:38
ED-Musculoskeletal Assessment Last Done: 08/06/25 16:07
ED- Neurological Assessment Last Done: 08/06/25 16:07
ED-Skin Assessment Last Done: 08/06/25 16:07
Discharge Date and Time
Discharge Date/Time: 08/06/25 16:40
Print Language: KENYAN
[2025-08-06 16:02] VITALS: BP 122/63
== END 2025-08-06 16:40 | disposition home or self-care (01) ==
LOC: EMR 15:27
PROVIDERS: EMERGENCY PHYSICIAN Emergency Medicine; FAMILY PHYSICIAN Internal Medicine
DX: S70.02XA Contusion of left hip, initial encounter (principal); W01.0XXA Fall on same level from slipping, tripping and stumbling without subsequent striking against object, initial encounter; I48.91 Unspecified atrial fibrillation; I10 Essential (primary) hypertension; K21.9 Gastro-esophageal reflux disease without esophagitis; C34.90 Malignant neoplasm of unspecified part of unspecified bronchus or lung; C78.7 Secondary malignant neoplasm of liver and intrahepatic bile duct; Z79.01 Long term (current) use of anticoagulants; Z85.118 Personal history of other malignant neoplasm of bronchus and lung; Z86.718 Personal history of other venous thrombosis and embolism
CPT/HCPCS: 99283; 73502